=== PATIENT | male | born 1955 | race Caucasian/White ===

== ENCOUNTER → 2017-10-03 | Outpatient (CLI) | payer OTHER ==
[2017-10-03 12:25] LABS: PROSTATIC SPECIFIC AG MONITOR 0.73 NG/ML (< 4.0)
== END ==
LOC: M WUC 09:50
DX: Z12.5 Encounter for screening for malignant neoplasm of prostate (principal)
CPT/HCPCS: 84153

== ENCOUNTER → 2017-10-10 | Outpatient (REF) | payer OTHER ==
[2017-10-10 14:39] LABS: APPEARANCE, URINE HAZY (CLEAR); BACTERIA, URINE AUTO NEGATIVE (NEGATIVE); BILIRUBIN, URINE AUTO NEGATIVE (NEGATIVE); BLOOD, URINE BLOOD NEGATIVE (NEGATIVE); COLOR, URINE AMBER (YELLOW); GLUCOSE, URINE (UA) AUTO NEGATIVE (NEGATIVE); KETONE, URINE AUTO NEGATIVE (NEGATIVE); LEUKOCYTE ESTERASE, URINE AUTO NEGATIVE (NEGATIVE); MUCUS, URINE SMALL (NEGATIVE); NITRITE, URINE AUTO NEGATIVE (NEGATIVE); PROTEIN, URINE AUTO NEGATIVE (NEGATIVE); RBC, URINE AUTO 2 /HPF (0-3); SPECIFIC GRAVITY URINE AUTO 1.025 (1.002-1.035); SQUAMOUS EPITHELIAL CELL UR AU 0 /HPF (0-6); WBC, URINE AUTO 1 /HPF (0-3)
== END ==
LOC: M SMT 13:11
DX: N40.1 Benign prostatic hyperplasia with lower urinary tract symptoms (principal)
CPT/HCPCS: 81001

== ENCOUNTER → 2017-11-29 | Outpatient (CLI) | payer OTHER ==
[2017-11-29 13:12] LABS: ALBUMIN 3.9 GM/DL (3.2-5.2); ANION GAP 9 MEQ/L (8-16); BLOOD UREA NITROGEN 19 MG/DL (7-18); CALCIUM LEVEL 9.1 MG/DL (8.8-10.2); CARBON DIOXIDE LEVEL 27 MEQ/L (21-32); CHLORIDE LEVEL 106 MEQ/L (98-107); CREATININE FOR GFR 0.88 MG/DL (0.70-1.30); GLOMERULAR FILTRATION RATE > 60.0 (>49); GLUCOSE, FASTING 149 MG/DL (70-100); PHOSPHORUS LEVEL 2.3 MG/DL (2.5-4.9); POTASSIUM SERUM 4.1 MEQ/L (3.5-5.1); SODIUM LEVEL 142 MEQ/L (136-145)
== END ==
LOC: M WUC 09:57
DX: I11.9 Hypertensive heart disease without heart failure (principal)
CPT/HCPCS: 80069

== ENCOUNTER → 2018-01-03 | Outpatient (REF) | payer OTHER ==
[2018-01-03 19:06] LABS: DIGOXIN LEVEL 0.8 NG/ML (0.5-2.0)
== END ==
LOC: M LAB REF 17:47
DX: I48.2 Chronic atrial fibrillation (principal)

== ENCOUNTER 2018-05-22 07:52 | Day surgery (SDC) | payer OTHER ==
[2018-05-22] MEDS ORDERED: PROPOFOL 200 MG/20 ML VIAL As Ordered ×2 (08:26)
[2018-05-22] MEDS ORDERED: LIDOCAINE 2% INJ 100 MG/5 ML SDV (FOR ANES.) As Ordered (08:26)
[2018-05-22] MEDS: NS 1,000 ML IV (08:37)
== END 2018-05-22 11:06 | disposition home or self-care (01) ==
LOC: M OPP 07:52
DX: Z12.11 Encounter for screening for malignant neoplasm of colon (principal); Z80.0 Family history of malignant neoplasm of digestive organs; K62.1 Rectal polyp; I48.91 Unspecified atrial fibrillation; E78.5 Hyperlipidemia, unspecified; E11.9 Type 2 diabetes mellitus without complications; M10.9 Gout, unspecified; M19.90 Unspecified osteoarthritis, unspecified site; F41.0 Panic disorder [episodic paroxysmal anxiety]; F32.9 Major depressive disorder, single episode, unspecified; G43.909 Migraine, unspecified, not intractable, without status migrainosus; G47.30 Sleep apnea, unspecified; E66.9 Obesity, unspecified; Z87.891 Personal history of nicotine dependence; Z79.82 Long term (current) use of aspirin; Z79.899 Other long term (current) drug therapy; Z79.84 Long term (current) use of oral hypoglycemic drugs; Z79.01 Long term (current) use of anticoagulants
CPT/HCPCS: 45378

== ENCOUNTER 2018-08-24 10:17 | Emergency (ER) | payer MEDICARE, OTHER ==
[~2018-08-24] VITALS: Ht 185.4 cm; Wt 120.5 kg
[~2018-08-24 10:17] MED LIST: ASPI81TA85 PO; ATOR40TA75 PO; CHLO25TA PO; DIGO0.12 PO; DOCU10CA PO; ELIQ5TAB PO; ELIQUIS PO; FLOM0.4C39 PO; LISI-538 PO; LISI2.5T5 PO; METF500T13 PO; MILK120011 PO; MOBI15TA PO; MULTCAP PO; NEUR300C PO; PAXI25TA13 PO; PAXI37.56 PO; PERC5TAB12 PO; POTA10TA67 PO; ROBA750T4 PO; VERE1CAP PO; ZOCO10TA PO
--- NOTE | 2018-08-24 10:50 | REP ---
CT Head without contrast HISTORY: Fall COMPARISON: None There is no intraparenchymal hemorrhage, acute infarct, mass or midline shift. The ventricular system is normal in appearance. A small retro cerebellar arachnoid cyst is present. There is no extra cerebral collection. There is no fracture. The visualized sinuses are clear. IMPRESSION: There is no intracranial lesion. Electronically Signed by aDmian Marquez MD 08/24/2018 10:42 A
--- NOTE | 2018-08-24 10:56 | REP ---
CT cervical spine without contrast HISTORY: Fall COMPARISON: None The patient is status post C5-C7 anterior spinal fusion. A fixation plate and bone graft material are present. There is no acute fracture or subluxation. A disc bulge is present at the C2-3 level. Disc bulges with associated osteophyte formation are present at the C3-4 and C4-5 levels. Posterior osteophytes are present at the C5-6 and C6-7 levels. There is minimal to mild narrowing of the spinal canal. Uncinate process and/or facet hypertrophy are present at the C2-3 through C7-T1 levels. These findings produce minimal to moderate narrowing of the neural foramina. The C3-4 and C4-5 intervertebral discs are decreased in height consistent with disc degeneration IMPRESSION: 1. There is no acute fracture or subluxation. 2. There is cervical spondylosis at the C2-3 through C7-T1 levels. Electronically Signed by Damian Marquez MD 08/24/2018 10:47 A
[2018-08-24] MEDS ORDERED: ADACEL/BOOSTRIX VACCINE (DIPHTH/PERTUSS/ACELL/TETANUS)0.5ML SYR (90715) IM ONE (11:00)
[2018-08-24] MEDS ORDERED: LIDOCAINE W/EPINEPHRINE 1% 20ML VIAL As Ordered ONE (12:14)
[2018-08-24 13:05] VITALS: BP 156/56
[2018-08-24] MEDS ORDERED: LIDOCAINE W/EPINEPHRINE 1% 20ML VIAL SC ONE (14:00)
== END 2018-08-24 13:14 | disposition home or self-care (01) ==
LOC: M ED 10:17
DX: S01.01XA Laceration without foreign body of scalp, initial encounter (principal); W00.9XXA Unspecified fall due to ice and snow, initial encounter; Y92.009 Unspecified place in unspecified non-institutional (private) residence as the place of occurrence of the external cause; Y93.89 Activity, other specified; I10 Essential (primary) hypertension; I48.91 Unspecified atrial fibrillation; G47.33 Obstructive sleep apnea (adult) (pediatric)

== ENCOUNTER → 2019-03-13 | Outpatient (REF) | payer MEDICARE, OTHER ==
[~2019-03-13] MED LIST changes: +CHLO125TA PO; -CHLO25TA PO; +LISI-1046 PO; -LISI2.5T5 PO
== END ==
LOC: M LAB REF 12:25
PROVIDERS: ATTEND Internal Medicine
DX: Z80.0 Family history of malignant neoplasm of digestive organs (principal)

== ENCOUNTER → 2019-05-27 | Outpatient (REF) | payer MEDICARE, OTHER ==
[2019-05-27 13:34] LABS: APPEARANCE, URINE CLEAR (CLEAR); BACTERIA, URINE AUTO NEGATIVE (NEGATIVE); BILIRUBIN, URINE AUTO NEGATIVE (NEGATIVE); BLOOD, URINE BLOOD NEGATIVE (NEGATIVE); COLOR, URINE YELLOW (YELLOW); GLUCOSE, URINE (UA) AUTO NEGATIVE (NEGATIVE); KETONE, URINE AUTO TRACE mg/dL (NEGATIVE); LEUKOCYTE ESTERASE, URINE AUTO NEGATIVE (NEGATIVE); MUCUS, URINE SMALL (NEGATIVE); NITRITE, URINE AUTO NEGATIVE (NEGATIVE); PROTEIN, URINE AUTO NEGATIVE (NEGATIVE); RBC, URINE AUTO 3 /HPF (0-3); SPECIFIC GRAVITY URINE AUTO 1.027 (1.002-1.035); SQUAMOUS EPITHELIAL CELL UR AU 0 /HPF (0-6); WBC, URINE AUTO 1 /HPF (0-3)
== END ==
LOC: M SMT 13:01
PROVIDERS: ATTEND Nurse Practitioner Women's Health
DX: R31.29 Other microscopic hematuria (principal)
CPT/HCPCS: 81001; 87086; G0463

== ENCOUNTER → 2020-02-11 | Outpatient (CLI) | payer MEDICARE, OTHER ==
[~2020-02-11] MED LIST changes: -ASPI81TA85 PO; +ASPI81TA86 PO; +DIGO0.123 PO; -LISI-1046 PO; +LISI2.5T2 PO
[2020-02-11 13:57] LABS: HEMATOCRIT 45.1 % (42.0-52.0); HEMOGLOBIN 14.5 g/dl (13.5-17.5); MEAN CORPUSCULAR HEMOGLOBIN 29.2 pg (27.0-33.0); MEAN CORPUSCULAR HGB CONC 32.2 g/dl (32.0-36.5); MEAN CORPUSCULAR VOLUME 90.9 fl (80.0-96.0); PLATELET COUNT, AUTOMATED 309 10^3/uL (150-450); RED BLOOD COUNT 4.96 10^6/uL (4.30-6.10); WHITE BLOOD COUNT 8.3 10^3/uL (4.0-10.0)
[2020-02-11 14:13] LABS: BLOOD UREA NITROGEN 18 MG/DL (7-18); CALCIUM LEVEL 8.8 MG/DL (8.8-10.2); CARBON DIOXIDE LEVEL 27 MEQ/L (21-32); CHLORIDE LEVEL 105 MEQ/L (98-107); CREATININE FOR GFR 1.14 MG/DL (0.70-1.30); FREE T4 1.15 NG/DL (0.76-1.46); GLOMERULAR FILTRATION RATE > 60.0 (>49); GLUCOSE, FASTING 130 MG/DL (70-100); POTASSIUM SERUM 4.7 MEQ/L (3.5-5.1); SODIUM LEVEL 139 MEQ/L (136-145)
== END ==
LOC: M WUC 09:41
PROVIDERS: ATTEND Physician Assistant
DX: I48.21 Permanent atrial fibrillation (principal); Z79.82 Long term (current) use of aspirin; Z79.899 Other long term (current) drug therapy; Z79.84 Long term (current) use of oral hypoglycemic drugs

== ENCOUNTER → 2020-03-20 | Outpatient (REF) | payer MEDICARE, OTHER | LOC: M LAB REF 16:00 | PROVIDERS: ATTEND Internal Medicine | DX: R10.32 Left lower quadrant pain (principal) ==

== ENCOUNTER → 2020-03-20 | Outpatient (CLI) | payer MEDICARE, OTHER ==
--- NOTE | 2020-03-20 12:03 | REPVR ---
PROCEDURE INFORMATION: Exam: CT Abdomen And Pelvis Without Contrast Exam date and time: 03/20/2020 11:27 AM Age: 64 years old Clinical indication: Abdominal pain; Localized; Left lower quadrant (llq); Additional info: Llq pain eval for diverticulitis and obstruction TECHNIQUE: Imaging protocol: Computed tomography of the abdomen and pelvis without contrast. Radiation optimization: All CT scans at this facility use at least one of these dose optimization techniques: automated exposure control; mA and/or kV adjustment per patient size (includes targeted exams where dose is matched to clinical indication); or iterative reconstruction. COMPARISON: No relevant prior studies available. FINDINGS: Detailed evaluation of the abdominal and pelvic viscera is somewhat limited in the absence of intravenous contrast. Lungs: Interstitial prominence. Liver: Fatty infiltration of the liver without focal mass. Gallbladder and bile ducts: Gallbladder dilatation. No cholelithiasis or biliary ductal dilatation. Pancreas: No pancreatic mass or ductal dilatation. Spleen: No splenomegaly. Adrenals: Unremarkable adrenals. Kidneys and ureters: Bilateral renal cysts, including a 3.9 cm left renal cyst. No hydronephrosis or urolithiasis. Stomach and bowel: Questionable wall thickening in the nondistended stomach. No significant small bowel dilatation. Prominent stool, in a pattern of constipation. Diverticula, without pericolonic inflammation. Appendix: No acute appendicitis. Intraperitoneal space: No free fluid. Vasculature: Normal caliber of the abdominal aorta. Lymph nodes: Subcentimeter lymph nodes. Bladder: Normal bladder morphology. Reproductive: Calcifications in the mildly enlarged prostate. Bones/joints: Degenerative change and disc bulging. Grade 1 anterolisthesis of L4 on L5. Soft tissues: Calcification at the gluteal muscle attachment sites. Small fat containing inguinal hernia. IMPRESSION: 1. No acute inflammatory process in the abdomen or pelvis. 2. Additional findings as described above. Electronically signed by: Nestor Plaza On 03/20/2020 12:03:40 PM
== END ==
LOC: M RAD 11:13
PROVIDERS: ATTEND Internal Medicine
DX: R10.30 Lower abdominal pain, unspecified (principal); M51.26 Other intervertebral disc displacement, lumbar region

== ENCOUNTER → 2020-08-04 | Outpatient (REF) | payer MEDICARE, OTHER | LOC: M LAB REF 16:38 | PROVIDERS: ATTEND Internal Medicine | DX: I48.20 Chronic atrial fibrillation, unspecified (principal) ==

== ENCOUNTER → 2020-09-04 | Outpatient (REF) | payer MEDICARE, OTHER ==
[~2020-09-04] MED LIST changes: -LISI-538 PO; +LISI20TA33 PO
== END ==
LOC: M LAB REF 11:59
PROVIDERS: ATTEND Internal Medicine
DX: I48.20 Chronic atrial fibrillation, unspecified (principal)

== ENCOUNTER → 2020-09-16 | Outpatient (CLI) | payer MEDICARE, OTHER | LOC: M WUC 13:59 | PROVIDERS: ATTEND Nurse Practitioner Women's Health | DX: Z12.5 Encounter for screening for malignant neoplasm of prostate (principal) | CPT/HCPCS: 36415; G0103 ==

== ENCOUNTER → 2021-02-09 | Outpatient (REF) | payer MEDICARE, OTHER | LOC: M LAB REF 16:30 | PROVIDERS: ATTEND Internal Medicine | DX: Z79.899 Other long term (current) drug therapy (principal); W57.XXXA Bitten or stung by nonvenomous insect and other nonvenomous arthropods, initial encounter ==

== ENCOUNTER → 2021-05-11 | Outpatient (REF) | payer MEDICARE, OTHER ==
[~2021-05-11] MED LIST changes: -LISI2.5T2 PO; +LISI2.5T9 PO
[2021-05-11 17:13] LABS: DIGOXIN LEVEL 1.6 NG/ML (0.5-2.0)
[2021-05-11 18:21] LABS: H PYLORI QUALITATIVE IgG NEGATIVE (NEGATIVE)
== END ==
LOC: M LAB REF 16:08
PROVIDERS: ATTEND Physician Assistant Medical
DX: I48.20 Chronic atrial fibrillation, unspecified (principal); K21.9 Gastro-esophageal reflux disease without esophagitis

== ENCOUNTER → 2021-09-30 | Outpatient (CLI) | payer MEDICARE, OTHER ==
[~2021-09-30] MED LIST changes: +PARO25TA12 PO; +PARO37.510 PO; -PAXI25TA13 PO; -PAXI37.56 PO
== END ==
LOC: M RAD 08:46
PROVIDERS: ATTEND Internal Medicine
DX: M54.2 Cervicalgia (principal)

== ENCOUNTER → 2022-06-07 | Outpatient (CLI) | payer MEDICARE, OTHER ==
[~2022-06-07] MED LIST changes: +SIMV-252 PO; -ZOCO10TA PO
== END ==
LOC: M RAD 11:32
PROVIDERS: ATTEND Physician Assistant
DX: I65.23 Occlusion and stenosis of bilateral carotid arteries (principal)

== ENCOUNTER 2022-08-15 08:50 | Inpatient (IN) | payer MEDICARE, OTHER ==
[~2022-08-15] VITALS: Ht 185.4 cm; Wt 109.1 kg
[2022-08-15] MEDS ORDERED: ONDANSETRON 4MG 2ML VIAL IV ONE (09:00)
[2022-08-15] MEDS: MORPHINE 2 MG/ML 1ML VIAL IV PRN ×2 (09:54→11:47)
[2022-08-15] MEDS: NS 1,000 ML IV SCH ×2 (09:54→18:33)
[2022-08-15 09:55] LABS: BASO # 0.1 10^3/uL (0.0-0.2); BASO % 0.8 % (0.0-1.0); EOS # 0.5 10^3/uL (0.0-0.5); EOS % 5.1 % (0.0-3.0); HEMATOCRIT 42.9 % (42.0-52.0); HEMOGLOBIN 14.5 g/dl (13.5-17.5); LYMPH # 2.2 10^3/uL (1.5-5.0); LYMPH % 24.2 % (24.0-44.0); MEAN CORPUSCULAR HEMOGLOBIN 29.2 pg (27.0-33.0); MEAN CORPUSCULAR HGB CONC 33.8 g/dl (32.0-36.5); MEAN CORPUSCULAR VOLUME 86.5 fl (80.0-96.0); MONO # 0.4 10^3/uL (0.0-0.8); MONO % 4.5 % (2.0-8.0); NEUTROPHILS # 5.9 10^3/uL (1.5-8.5); NEUTROPHILS % 65.1 % (36.0-66.0); PLATELET COUNT, AUTOMATED 194 10^3/uL (150-450); RED BLOOD COUNT 4.96 10^6/uL (4.30-6.10); WHITE BLOOD COUNT 9.1 10^3/uL (4.0-10.0)
[2022-08-15 10:07] LABS: INR 0.96
[2022-08-15] MEDS ORDERED: MORPHINE 4 MG/ML 1ML VIAL As Ordered ONE (10:07)
[2022-08-15 10:08] LABS: PARTIAL THROMBOPLASTIN TIME 24.6 SECONDS (24.8-34.2)
[2022-08-15 10:18] LABS: ALBUMIN 3.8 G/DL (3.2-5.2); ALKALINE PHOSPHATASE 60 U/L (46-116); ALT/SGPT 41 U/L (7.0-40); AST/SGOT 26 U/L (<34); BILIRUBIN,DIRECT 0.3 MG/DL (<0.4); BILIRUBIN,TOTAL 0.9 MG/DL (0.3-1.2); BLOOD UREA NITROGEN 17 MG/DL (9-23); CALCIUM LEVEL 8.8 MG/DL (8.3-10.6); CARBON DIOXIDE LEVEL 24 MMOL/L (20-31); CHLORIDE LEVEL 104 MMOL/L (98-107); CREATININE FOR GFR 0.77 MG/DL (0.70-1.30); GLOMERULAR FILTRATION RATE > 60.0 (>49); GLUCOSE, FASTING 155 MG/DL (74-106); POTASSIUM SERUM 4.5 MMOL/L (3.5-5.1); SODIUM LEVEL 137 MMOL/L (136-145); TOTAL PROTEIN 6.8 G/DL (5.7-8.2)
[2022-08-15 10:32] LABS: RSV AMPLIFICATION NEGATIVE (NEGATIVE)
[2022-08-15] MEDS ORDERED: NS 500 ML IV ONE (10:38)
[2022-08-15] MEDS ORDERED: MORPHINE 4 MG/ML 1ML VIAL IV ONE (10:38)
[2022-08-15] MEDS ORDERED: ECOT81TA5 PO (11:39)
[2022-08-15] MEDS ORDERED: ASPI-569 PO (11:41)
[2022-08-15] MEDS ORDERED: ATOR80TA59 PO (11:41)
[2022-08-15] MEDS ORDERED: DIGO0.253 PO (11:43)
[2022-08-15] MEDS ORDERED: VERA200C2 PO (11:48)
[2022-08-15] MEDS ORDERED: VITMTA PO (11:48)
[2022-08-15] MEDS ORDERED: GLUCAGON INJ 1MG VIAL SC PRN (11:50)
[2022-08-15] MEDS ORDERED: DEXTROSE 50% 50ML SYRINGE IV PRN (11:50)
[2022-08-15] MEDS ORDERED: GLUCOSE 4GM CHEW TABLET PO PRN (11:50)
[2022-08-15] MEDS ORDERED: MORPHINE 4 MG/ML 1ML VIAL IV PRN (11:50)
[2022-08-15] MEDS ORDERED: LANTINJ4 SC (11:54)
[2022-08-15] MEDS ORDERED: LISI2.5T9 PO (11:54)
[2022-08-15] MEDS ORDERED: JARD1TAB PO (11:54)
[2022-08-15] MEDS ORDERED: DULO30CA9 PO (11:54)
[2022-08-15] MEDS: INSULIN LISPRO (NovoLOG) PER UNIT SC SCH ×2 (12:00→17:30)
[2022-08-15] MEDS ORDERED: HOME MED LIST COMPLETE! XX SCH (12:05)
[2022-08-15] MEDS: KETOROLAC 30 MG/ML 1ML VIAL IV SCH ×2 (13:00→21:04)
[2022-08-15 13:05] LABS: BASO # 0.1 10^3/uL (0.0-0.2); BASO % 0.5 % (0.0-1.0); EOS # 0.1 10^3/uL (0.0-0.5); EOS % 0.6 % (0.0-3.0); HEMATOCRIT 40.3 % (42.0-52.0); HEMOGLOBIN 13.7 g/dl (13.5-17.5); LYMPH # 1.4 10^3/uL (1.5-5.0); MEAN CORPUSCULAR HEMOGLOBIN 29.5 pg (27.0-33.0); MEAN CORPUSCULAR VOLUME 86.9 fl (80.0-96.0); MONO # 0.8 10^3/uL (0.0-0.8); MONO % 5.3 % (2.0-8.0); NEUTROPHILS # 12.8 10^3/uL (1.5-8.5); NEUTROPHILS % 84.1 % (36.0-66.0); PLATELET COUNT, AUTOMATED 192 10^3/uL (150-450); RED BLOOD COUNT 4.64 10^6/uL (4.30-6.10); WHITE BLOOD COUNT 15.2 10^3/uL (4.0-10.0)
[2022-08-15] MEDS: PERCOCET 5MG/325MG TAB PO PRN ×2 (17:39→23:13)
[2022-08-15 20:50] VITALS: BP 131/68
[2022-08-15] MEDS ORDERED: INSULIN LISPRO (NovoLOG) PER UNIT SC SCH (21:00)
[2022-08-15] MEDS: TAMSULOSIN 0.4 MG CAP PO SCH (22:09)
[2022-08-15] MEDS: VERAPAMIL 180MG EXTENDED RELEASE TABLET PO SCH (22:20)
[2022-08-16] VITALS (9 sets, daily range): BP systolic 123–148; BP diastolic 61–84
[2022-08-16] MEDS: KETOROLAC 30 MG/ML 1ML VIAL IV SCH ×4 (01:38→20:36)
[2022-08-16] MEDS ORDERED: INSULIN LISPRO (NovoLOG) PER UNIT SC SCH ×2 (03:00→21:00)
[2022-08-16] MEDS: INSULIN LISPRO (NovoLOG) PER UNIT SC SCH ×4 (06:00→18:00)
[2022-08-16 06:18] LABS: HEMATOCRIT 35.7 % (42.0-52.0); HEMOGLOBIN 11.8 g/dl (13.5-17.5); MEAN CORPUSCULAR HEMOGLOBIN 29.6 pg (27.0-33.0); MEAN CORPUSCULAR HGB CONC 33.1 g/dl (32.0-36.5); MEAN CORPUSCULAR VOLUME 89.5 fl (80.0-96.0); PLATELET COUNT, AUTOMATED 183 10^3/uL (150-450); RED BLOOD COUNT 3.99 10^6/uL (4.30-6.10); WHITE BLOOD COUNT 10.3 10^3/uL (4.0-10.0)
[2022-08-16 06:44] LABS: ALBUMIN 3.2 G/DL (3.2-5.2); ALKALINE PHOSPHATASE 53 U/L (46-116); ALT/SGPT 31 U/L (7.0-40); AST/SGOT 22 U/L (<34); BILIRUBIN,TOTAL 0.7 MG/DL (0.3-1.2); BLOOD UREA NITROGEN 27 MG/DL (9-23); CALCIUM LEVEL 8.4 MG/DL (8.3-10.6); CARBON DIOXIDE LEVEL 26 MMOL/L (20-31); CHLORIDE LEVEL 106 MMOL/L (98-107); CREATININE FOR GFR 0.92 MG/DL (0.70-1.30); GLOMERULAR FILTRATION RATE > 60.0 (>49); GLUCOSE, FASTING 122 MG/DL (74-106); POTASSIUM SERUM 4.4 MMOL/L (3.5-5.1); SODIUM LEVEL 139 MMOL/L (136-145); TOTAL PROTEIN 5.6 G/DL (5.7-8.2)
[2022-08-16] MEDS: NS 1,000 ML IV SCH (06:47)
[2022-08-16] MEDS: PERCOCET 5MG/325MG TAB PO PRN ×2 (08:55→22:39)
[2022-08-16] MEDS: DIGOXIN 0.25 MG TAB PO SCH (08:56)
[2022-08-16] MEDS: ATORVASTATIN 20 MG TAB PO SCH (08:59)
[2022-08-16] MEDS ORDERED: TRANEXAMIC ACID 100 MG/ML 10ML VIAL As Ordered ONE ×2 (14:58→18:18)
[2022-08-16] MEDS ORDERED: BUPIVACAINE LIPOSOME/PF 1.3% 20ML VIAL (13.3MG/ML)(EXPAREL) As Ordered ONE (14:59)
[2022-08-16] MEDS ORDERED: LIDOCAINE W/EPINEPHRINE 1% 20ML VIAL As Ordered ONE (14:59)
[2022-08-16] MEDS ORDERED: BUPIVACAINE HCL 0.5% 30ML VIAL As Ordered ONE (14:59)
[2022-08-16] MEDS ORDERED: fentaNYL 100 MCG/2 ML INJECTION As Ordered ONE ×2 (15:34→17:07)
[2022-08-16] MEDS ORDERED: propofoL 200 MG/20 ML VIAL As Ordered ONE (15:34)
[2022-08-16] MEDS ORDERED: MIDAZOLAM INJ 2MG/2ML VIAL As Ordered ONE (15:34)
[2022-08-16] MEDS ORDERED: LIDOCAINE 2% 100MG/5ML SDV (FOR ANES.) As Ordered ONE (15:34)
[2022-08-16] MEDS ORDERED: ROCURONIUM BROMIDE 50MG/5ML VIAL As Ordered ONE (15:34)
[2022-08-16] MEDS ORDERED: METOCLOPRAMIDE INJ 10MG/2ML VIAL As Ordered ONE (15:58)
[2022-08-16] MEDS ORDERED: ceFAZolin 2 GM/D5W 50 ML IV BAG As Ordered ONE (16:04)
[2022-08-16] MEDS ORDERED: ACETAMINOPHEN 1000MG 100ML IV BAG As Ordered ONE (16:22)
[2022-08-16] MEDS ORDERED: ONDANSETRON 4MG 2ML VIAL As Ordered ONE (16:23)
[2022-08-16] MEDS ORDERED: SUGAMMADEX SODIUM 500 MG/5 ML VIAL (BRIDION) As Ordered ONE (16:33)
[2022-08-16] MEDS ORDERED: VANCOMYCIN 1000MG/20ML VIAL As Ordered ONE (17:42)
[2022-08-16] MEDS ORDERED: LR 1,000 ML IV SCH (18:30)
[2022-08-16] MEDS ORDERED: ONDANSETRON 4MG 2ML VIAL IV PRN (18:30)
[2022-08-16] MEDS ORDERED: METOCLOPRAMIDE INJ 10MG/2ML VIAL IV PRN (18:30)
[2022-08-16] MEDS ORDERED: fentaNYL 100 MCG/2 ML INJECTION IV PRN (18:30)
[2022-08-16] MEDS ORDERED: oxyCODONE 5MG TAB PO PRN (18:30)
[2022-08-16] MEDS ORDERED: MORPHINE 2 MG/ML 1ML VIAL IV PRN (18:30)
[2022-08-16 19:06] LABS: HEMATOCRIT 30.6 % (42.0-52.0); HEMOGLOBIN 10.1 g/dl (13.5-17.5)
[2022-08-16] MEDS ORDERED: LEVEMIR (INSULIN DETEMIR) 1 UNITS/0.01ML SC SCH (21:00)
[2022-08-16] MEDS ORDERED: DULoxetine 30MG CAPSULE (CYMBALTA) PO SCH (21:00)
[2022-08-16] MEDS: VERAPAMIL 180MG EXTENDED RELEASE TABLET PO SCH (21:58)
[2022-08-16] MEDS: TAMSULOSIN 0.4 MG CAP PO SCH (21:58)
[2022-08-17] VITALS (7 sets, daily range): BP systolic 110–136; BP diastolic 50–74
[2022-08-17] MEDS: ceFAZolin SOD 2 GM in IV 1 EA IV SCH ×2 (00:20→08:07)
[2022-08-17] MEDS: KETOROLAC 30 MG/ML 1ML VIAL IV SCH ×3 (01:07→12:01)
[2022-08-17 06:13] LABS: HEMATOCRIT 28.6 % (42.0-52.0); HEMOGLOBIN 9.4 g/dl (13.5-17.5); MEAN CORPUSCULAR HEMOGLOBIN 29.9 pg (27.0-33.0); MEAN CORPUSCULAR HGB CONC 32.9 g/dl (32.0-36.5); MEAN CORPUSCULAR VOLUME 91.1 fl (80.0-96.0); PLATELET COUNT, AUTOMATED 149 10^3/uL (150-450); RED BLOOD COUNT 3.14 10^6/uL (4.30-6.10); WHITE BLOOD COUNT 9.4 10^3/uL (4.0-10.0)
[2022-08-17 06:20] LABS: INR 1.05; PROTHROMBIN TIME 13.9 SECONDS (12.5-14.5)
[2022-08-17 06:32] LABS: ALBUMIN 2.9 G/DL (3.2-5.2); ALKALINE PHOSPHATASE 47 U/L (46-116); ALT/SGPT 30 U/L (7.0-40); AST/SGOT 35 U/L (<34); BILIRUBIN,TOTAL 0.8 MG/DL (0.3-1.2); BLOOD UREA NITROGEN 29 MG/DL (9-23); CALCIUM LEVEL 8.1 MG/DL (8.3-10.6); CARBON DIOXIDE LEVEL 27 MMOL/L (20-31); CHLORIDE LEVEL 107 MMOL/L (98-107); CREATININE FOR GFR 0.89 MG/DL (0.70-1.30); GLOMERULAR FILTRATION RATE > 60.0 (>49); GLUCOSE, FASTING 109 MG/DL (74-106); PHOSPHORUS LEVEL 3.8 MG/DL (2.4-5.1); POTASSIUM SERUM 4.2 MMOL/L (3.5-5.1); SODIUM LEVEL 141 MMOL/L (136-145); TOTAL PROTEIN 4.9 G/DL (5.7-8.2)
[2022-08-17] MEDS: ATORVASTATIN 20 MG TAB PO SCH (08:05)
[2022-08-17] MEDS: DIGOXIN 0.25 MG TAB PO SCH (08:07)
[2022-08-17] MEDS: INSULIN LISPRO (NovoLOG) PER UNIT SC SCH ×3 (08:08→12:01)
[2022-08-17] MEDS: PERCOCET 5MG/325MG TAB PO PRN (08:50)
[2022-08-17] MEDS ORDERED: MORP4INJ2 IV (10:15)
[2022-08-17] MEDS ORDERED: CEFA1SOL IV (10:15)
[2022-08-17] MEDS ORDERED: PERCOCET PO (10:15)
[2022-08-17] MEDS ORDERED: Ketorolac Tromethamine IV (10:15)
== END 2022-08-17 15:36 | DRG 481 ==
LOC: M ED 08:50 → EDBD 08:50 → EDSEX 08:50 → M ED INP 11:50 → ENRESERV 19:13 → M MSPAV 20:51
PROVIDERS: ADMIT Internal Medicine Nephrology; ATTEND Student in an Organized Health Care Education/Training Program
PROC: BQ11ZZZ Fluoroscopy of Left Hip (ICD-10-PCS; 2022-08-16)
PROC: 0QS706Z Reposition Left Upper Femur with Intramedullary Internal Fixation Device, Open Approach (ICD-10-PCS; principal; 2022-08-16 07:30)
PROC: 30233N1 Transfusion of Nonautologous Red Blood Cells into Peripheral Vein, Percutaneous Approach (ICD-10-PCS; 2022-08-17)
DX: S72.002A Fracture of unspecified part of neck of left femur, initial encounter for closed fracture (principal); D62 Acute posthemorrhagic anemia; I48.91 Unspecified atrial fibrillation; I10 Essential (primary) hypertension; E78.5 Hyperlipidemia, unspecified; G47.33 Obstructive sleep apnea (adult) (pediatric); F41.9 Anxiety disorder, unspecified; N40.1 Benign prostatic hyperplasia with lower urinary tract symptoms; G43.909 Migraine, unspecified, not intractable, without status migrainosus; E11.9 Type 2 diabetes mellitus without complications; K76.0 Fatty (change of) liver, not elsewhere classified; M47.812 Spondylosis without myelopathy or radiculopathy, cervical region; F32.A Depression, unspecified; M19.90 Unspecified osteoarthritis, unspecified site; W00.0XXA Fall on same level due to ice and snow, initial encounter; Y92.9 Unspecified place or not applicable; Z85.828 Personal history of other malignant neoplasm of skin; Z87.891 Personal history of nicotine dependence; Z20.822 Contact with and (suspected) exposure to COVID-19; Z79.01 Long term (current) use of anticoagulants; Z79.82 Long term (current) use of aspirin; Z79.4 Long term (current) use of insulin; Z79.899 Other long term (current) drug therapy

== ENCOUNTER 2022-08-17 11:17 | Inpatient (IN) | payer MEDICARE, OTHER ==
[~2022-08-17] VITALS: Ht 185.4 cm; Wt 104.0 kg
[~2022-08-17 11:17] MED LIST changes: +ASPI-569 PO; +ATOR80TA59 PO; +CEFA1SOL IV; +DIGO0.253 PO; +DULO30CA9 PO; +ECOT81TA5 PO; +JARD1TAB PO; +Ketorolac Tromethamine IV; +LANTINJ4 SC; +MORP4INJ2 IV; +PERCOCET PO; +VERA200C2 PO; +VITMTA PO
[2022-08-17] MEDS ORDERED: BISACODYL 10MG SUPP PR PRN (12:35)
[2022-08-17] MEDS ORDERED: DEXTROSE 50% 50ML SYRINGE IV PRN (12:35)
[2022-08-17] MEDS ORDERED: GLUCAGON INJ 1MG VIAL SC PRN (12:35)
[2022-08-17] MEDS ORDERED: ONDANSETRON 4MG TAB PO PRN (12:35)
[2022-08-17] MEDS ORDERED: GLUCOSE 4GM CHEW TABLET PO PRN (12:35)
[2022-08-17] MEDS ORDERED: INSULIN LISPRO (NovoLOG) PER UNIT SC SCH (17:30)
[2022-08-17 20:00] VITALS: BP 132/62
[2022-08-17] MEDS: APIXABAN 5 MG TAB (ELIQUIS) PO SCH (20:46)
[2022-08-17] MEDS: ACETAMINOPHEN 500 MG TAB PO SCH (20:47)
[2022-08-17] MEDS: DULoxetine 30MG CAPSULE (CYMBALTA) PO SCH (20:47)
[2022-08-17] MEDS: SENNA 8.6 MG TAB (SENOKOT) PO SCH (20:47)
[2022-08-17] MEDS: oxyCODONE 5MG TAB PO PRN (20:47)
[2022-08-17] MEDS: LEVEMIR (INSULIN DETEMIR) 1 UNITS/0.01ML SC SCH (20:48)
[2022-08-17] MEDS: INSULIN LISPRO (NovoLOG) PER UNIT SC SCH (20:49)
[2022-08-17] MEDS: ceFAZolin SOD 2 GM in IV 1 EA IV SCH (20:50)
[2022-08-17] MEDS: REMEDY PHYTOPLEX Z-GUARD PASTE 113GM TUBE (FROM STOREROOM PRODUCT) TOP SCH (20:51)
[2022-08-17] MEDS: DOCUSATE SODIUM 100MG CAPSULE PO SCH (20:51)
[2022-08-17] MEDS ORDERED: VERAPAMIL 180MG EXTENDED RELEASE TABLET PO SCH (21:00)
[2022-08-17] MEDS ORDERED: TAMSULOSIN 0.4 MG CAP PO SCH (21:00)
[2022-08-18] MEDS: ceFAZolin SOD 2 GM in IV 1 EA IV SCH (03:33)
[2022-08-18 05:51] LABS: BASO # 0.1 10^3/uL (0.0-0.2); BASO % 0.6 % (0.0-1.0); EOS # 0.5 10^3/uL (0.0-0.5); HEMATOCRIT 27.5 % (42.0-52.0); LYMPH # 2.6 10^3/uL (1.5-5.0); LYMPH % 31.2 % (24.0-44.0); MEAN CORPUSCULAR HEMOGLOBIN 29.3 pg (27.0-33.0); MEAN CORPUSCULAR HGB CONC 32.7 g/dl (32.0-36.5); MEAN CORPUSCULAR VOLUME 89.6 fl (80.0-96.0); MONO # 0.7 10^3/uL (0.0-0.8); MONO % 8.8 % (2.0-8.0); NEUTROPHILS # 4.5 10^3/uL (1.5-8.5); NEUTROPHILS % 53.2 % (36.0-66.0); PLATELET COUNT, AUTOMATED 134 10^3/uL (150-450); RED BLOOD COUNT 3.07 10^6/uL (4.30-6.10); WHITE BLOOD COUNT 8.4 10^3/uL (4.0-10.0)
[2022-08-18 06:14] LABS: ALBUMIN 2.8 G/DL (3.2-5.2); ALKALINE PHOSPHATASE 46 U/L (46-116); ALT/SGPT 24 U/L (7.0-40); AST/SGOT 42 U/L (<34); BILIRUBIN,TOTAL 0.9 MG/DL (0.3-1.2); BLOOD UREA NITROGEN 24 MG/DL (9-23); CALCIUM LEVEL 8.1 MG/DL (8.3-10.6); CARBON DIOXIDE LEVEL 27 MMOL/L (20-31); CHLORIDE LEVEL 107 MMOL/L (98-107); GLOMERULAR FILTRATION RATE > 60.0 (>49); GLUCOSE, FASTING 113 MG/DL (74-106); POTASSIUM SERUM 3.9 MMOL/L (3.5-5.1); SODIUM LEVEL 141 MMOL/L (136-145)
[2022-08-18 06:34] VITALS: BP 130/68
[2022-08-18] MEDS: ATORVASTATIN 20 MG TAB PO SCH (07:14)
[2022-08-18] MEDS: INSULIN LISPRO (NovoLOG) PER UNIT SC SCH ×4 (07:14→20:25)
[2022-08-18] MEDS: PANTOPRAZOLE 40MG TAB (PROTONIX) PO SCH (07:14)
[2022-08-18] MEDS: DOCUSATE SODIUM 100MG CAPSULE PO SCH ×2 (07:15→20:24)
[2022-08-18] MEDS: APIXABAN 5 MG TAB (ELIQUIS) PO SCH ×2 (07:15→20:25)
[2022-08-18] MEDS: ACETAMINOPHEN 500 MG TAB PO SCH ×3 (07:16→20:24)
[2022-08-18] MEDS: REMEDY PHYTOPLEX Z-GUARD PASTE 113GM TUBE (FROM STOREROOM PRODUCT) TOP SCH ×3 (07:16→20:26)
[2022-08-18 08:23] VITALS: BP_SYST 104; BP_SYST 134; BP_SYST 84; BP_DIAS 47; BP_DIAS 51; BP_DIAS 62
[2022-08-18] MEDS ORDERED: DIGOXIN 0.25 MG TAB PO SCH (09:00)
[2022-08-18] MEDS ORDERED: NS 500 ML IV ONE (09:20)
[2022-08-18] MEDS ORDERED: LR 1,000 ML IV ONE (11:25)
[2022-08-18 11:35] VITALS: BP_SYST 120; BP_SYST 124; BP_SYST 132; BP_DIAS 70; BP_DIAS 80
[2022-08-18] MEDS ORDERED: SODIUM CHLORIDE 0.9% 1000ML IV ONE (11:35)
[2022-08-18 11:57] LABS: HEMATOCRIT 28.8 % (42.0-52.0); HEMOGLOBIN 9.6 g/dl (13.5-17.5); MEAN CORPUSCULAR HGB CONC 33.3 g/dl (32.0-36.5); PLATELET COUNT, AUTOMATED 159 10^3/uL (150-450); WHITE BLOOD COUNT 8.4 10^3/uL (4.0-10.0)
[2022-08-18] MEDS: oxyCODONE 5MG TAB PO PRN ×2 (12:25→20:24)
[2022-08-18 14:00] VITALS: BP 145/71
[2022-08-18 20:00] VITALS: BP 134/66
[2022-08-18] MEDS: VERAPAMIL 120MG SR TAB PO SCH (20:24)
[2022-08-18] MEDS: DULoxetine 30MG CAPSULE (CYMBALTA) PO SCH (20:24)
[2022-08-18] MEDS: LEVEMIR (INSULIN DETEMIR) 1 UNITS/0.01ML SC SCH (20:25)
[2022-08-18] MEDS: SENNA 8.6 MG TAB (SENOKOT) PO SCH (20:25)
[2022-08-19 06:00] VITALS: BP 130/72
[2022-08-19 06:30] LABS: BLOOD UREA NITROGEN 19 MG/DL (9-23); CALCIUM LEVEL 8.1 MG/DL (8.3-10.6); CARBON DIOXIDE LEVEL 27 MMOL/L (20-31); CHLORIDE LEVEL 106 MMOL/L (98-107); CREATININE FOR GFR 0.72 MG/DL (0.70-1.30); GLOMERULAR FILTRATION RATE > 60.0 (>49); GLUCOSE, FASTING 105 MG/DL (74-106); POTASSIUM SERUM 3.7 MMOL/L (3.5-5.1); SODIUM LEVEL 141 MMOL/L (136-145)
[2022-08-19] MEDS: oxyCODONE 5MG TAB PO PRN (06:55)
[2022-08-19] MEDS: INSULIN LISPRO (NovoLOG) PER UNIT SC SCH ×4 (08:35→20:31)
[2022-08-19] MEDS: DIGOXIN 0.25 MG TAB PO SCH (08:37)
[2022-08-19] MEDS: APIXABAN 5 MG TAB (ELIQUIS) PO SCH ×2 (08:37→20:30)
[2022-08-19] MEDS: ATORVASTATIN 20 MG TAB PO SCH (08:37)
[2022-08-19] MEDS: PANTOPRAZOLE 40MG TAB (PROTONIX) PO SCH (08:37)
[2022-08-19] MEDS: DOCUSATE SODIUM 100MG CAPSULE PO SCH ×2 (08:37→20:30)
[2022-08-19] MEDS: ACETAMINOPHEN 500 MG TAB PO SCH ×3 (08:38→20:30)
[2022-08-19] MEDS: REMEDY PHYTOPLEX Z-GUARD PASTE 113GM TUBE (FROM STOREROOM PRODUCT) TOP SCH ×3 (08:38→20:31)
[2022-08-19 14:00] VITALS: BP 139/63
[2022-08-19 20:00] VITALS: BP 145/66
[2022-08-19] MEDS: LEVEMIR (INSULIN DETEMIR) 1 UNITS/0.01ML SC SCH (20:29)
[2022-08-19] MEDS: SENNA 8.6 MG TAB (SENOKOT) PO SCH (20:30)
[2022-08-19] MEDS: DULoxetine 30MG CAPSULE (CYMBALTA) PO SCH (20:30)
[2022-08-19] MEDS: VERAPAMIL 120MG SR TAB PO SCH (20:31)
[2022-08-20 06:00] VITALS: BP 140/71
[2022-08-20] MEDS: INSULIN LISPRO (NovoLOG) PER UNIT SC SCH ×4 (08:14→20:35)
[2022-08-20] MEDS: ATORVASTATIN 20 MG TAB PO SCH (08:16)
[2022-08-20] MEDS: ACETAMINOPHEN 500 MG TAB PO SCH ×3 (08:16→20:34)
[2022-08-20] MEDS: DOCUSATE SODIUM 100MG CAPSULE PO SCH ×2 (08:16→20:34)
[2022-08-20] MEDS: APIXABAN 5 MG TAB (ELIQUIS) PO SCH ×2 (08:17→20:34)
[2022-08-20] MEDS: PANTOPRAZOLE 40MG TAB (PROTONIX) PO SCH (08:17)
[2022-08-20] MEDS: DIGOXIN 0.25 MG TAB PO SCH (08:17)
[2022-08-20] MEDS: REMEDY PHYTOPLEX Z-GUARD PASTE 113GM TUBE (FROM STOREROOM PRODUCT) TOP SCH ×3 (08:19→20:35)
[2022-08-20] MEDS: oxyCODONE 5MG TAB PO PRN (09:45)
[2022-08-20 14:10] VITALS: BP 158/74
[2022-08-20 14:35] VITALS: BP 134/63
[2022-08-20 20:24] VITALS: BP 164/72
[2022-08-20] MEDS: VERAPAMIL 120MG SR TAB PO SCH (20:34)
[2022-08-20] MEDS: DULoxetine 30MG CAPSULE (CYMBALTA) PO SCH (20:34)
[2022-08-20] MEDS: LEVEMIR (INSULIN DETEMIR) 1 UNITS/0.01ML SC SCH (20:34)
[2022-08-20] MEDS: SENNA 8.6 MG TAB (SENOKOT) PO SCH (20:34)
[2022-08-21] MEDS: oxyCODONE 5MG TAB PO PRN (06:26)
[2022-08-21 07:14] VITALS: BP 162/78
[2022-08-21] MEDS: DOCUSATE SODIUM 100MG CAPSULE PO SCH ×2 (08:35→20:35)
[2022-08-21] MEDS: INSULIN LISPRO (NovoLOG) PER UNIT SC SCH ×4 (08:35→20:36)
[2022-08-21] MEDS: APIXABAN 5 MG TAB (ELIQUIS) PO SCH ×2 (08:35→20:35)
[2022-08-21] MEDS: DIGOXIN 0.25 MG TAB PO SCH (08:36)
[2022-08-21] MEDS: PANTOPRAZOLE 40MG TAB (PROTONIX) PO SCH (08:37)
[2022-08-21] MEDS: ACETAMINOPHEN 500 MG TAB PO SCH ×3 (08:37→20:35)
[2022-08-21] MEDS: ATORVASTATIN 20 MG TAB PO SCH (08:37)
[2022-08-21] MEDS: REMEDY PHYTOPLEX Z-GUARD PASTE 113GM TUBE (FROM STOREROOM PRODUCT) TOP SCH ×3 (08:38→20:36)
[2022-08-21 14:00] VITALS: BP 118/62
[2022-08-21 20:32] VITALS: BP 142/62
[2022-08-21] MEDS: LEVEMIR (INSULIN DETEMIR) 1 UNITS/0.01ML SC SCH (20:34)
[2022-08-21] MEDS: DULoxetine 30MG CAPSULE (CYMBALTA) PO SCH (20:35)
[2022-08-21] MEDS: VERAPAMIL 120MG SR TAB PO SCH (20:35)
[2022-08-21] MEDS: SENNA 8.6 MG TAB (SENOKOT) PO SCH (20:35)
[2022-08-22 06:06] VITALS: BP 136/78
[2022-08-22] MEDS: oxyCODONE 5MG TAB PO PRN ×2 (06:54→20:27)
[2022-08-22] MEDS: APIXABAN 5 MG TAB (ELIQUIS) PO SCH ×2 (07:40→20:27)
[2022-08-22] MEDS: DIGOXIN 0.25 MG TAB PO SCH (07:40)
[2022-08-22] MEDS: PANTOPRAZOLE 40MG TAB (PROTONIX) PO SCH (07:40)
[2022-08-22] MEDS: INSULIN LISPRO (NovoLOG) PER UNIT SC SCH ×4 (07:41→20:28)
[2022-08-22] MEDS: ATORVASTATIN 20 MG TAB PO SCH (07:41)
[2022-08-22] MEDS: DOCUSATE SODIUM 100MG CAPSULE PO SCH ×2 (07:41→20:27)
[2022-08-22] MEDS: REMEDY PHYTOPLEX Z-GUARD PASTE 113GM TUBE (FROM STOREROOM PRODUCT) TOP SCH ×3 (07:42→19:16)
[2022-08-22] MEDS: ACETAMINOPHEN 500 MG TAB PO SCH ×3 (07:42→20:27)
[2022-08-22 08:38] LABS: BASO # 0.1 10^3/uL (0.0-0.2); BASO % 0.6 % (0.0-1.0); EOS # 0.3 10^3/uL (0.0-0.5); EOS % 3.5 % (0.0-3.0); HEMATOCRIT 31.9 % (42.0-52.0); HEMOGLOBIN 10.1 g/dl (13.5-17.5); LYMPH # 1.3 10^3/uL (1.5-5.0); LYMPH % 14.2 % (24.0-44.0); MEAN CORPUSCULAR HEMOGLOBIN 28.9 pg (27.0-33.0); MEAN CORPUSCULAR HGB CONC 31.7 g/dl (32.0-36.5); MEAN CORPUSCULAR VOLUME 91.1 fl (80.0-96.0); MONO # 0.4 10^3/uL (0.0-0.8); MONO % 4.5 % (2.0-8.0); NEUTROPHILS # 6.8 10^3/uL (1.5-8.5); NEUTROPHILS % 76.7 % (36.0-66.0); PLATELET COUNT, AUTOMATED 302 10^3/uL (150-450); WHITE BLOOD COUNT 8.8 10^3/uL (4.0-10.0)
[2022-08-22 09:29] LABS: BLOOD UREA NITROGEN 18 MG/DL (9-23); CALCIUM LEVEL 8.8 MG/DL (8.3-10.6); CARBON DIOXIDE LEVEL 24 MMOL/L (20-31); CHLORIDE LEVEL 104 MMOL/L (98-107); CREATININE FOR GFR 0.74 MG/DL (0.70-1.30); GLOMERULAR FILTRATION RATE > 60.0 (>49); GLUCOSE, FASTING 203 MG/DL (74-106); POTASSIUM SERUM 4.2 MMOL/L (3.5-5.1); SODIUM LEVEL 138 MMOL/L (136-145)
[2022-08-22 09:54] VITALS: BP 133/68
[2022-08-22] MEDS ORDERED: PILL CUTTER 1 EACH XX PRN (10:10)
[2022-08-22] MEDS ORDERED: VERAPAMIL 40 MG TAB PO ONE (11:00)
[2022-08-22 11:47] VITALS: BP 143/66
[2022-08-22 14:00] VITALS: BP 149/64
[2022-08-22 20:00] VITALS: BP 141/63
[2022-08-22] MEDS: DULoxetine 30MG CAPSULE (CYMBALTA) PO SCH (20:27)
[2022-08-22] MEDS: SENNA 8.6 MG TAB (SENOKOT) PO SCH (20:27)
[2022-08-22] MEDS ORDERED: VERAPAMIL 180MG EXTENDED RELEASE TABLET PO SCH (21:00)
[2022-08-23 06:00] VITALS: BP 139/69
[2022-08-23] MEDS: INSULIN LISPRO (NovoLOG) PER UNIT SC SCH (07:23)
[2022-08-23] MEDS: DIGOXIN 0.25 MG TAB PO SCH (07:24)
[2022-08-23] MEDS: ATORVASTATIN 20 MG TAB PO SCH (07:24)
[2022-08-23] MEDS: APIXABAN 5 MG TAB (ELIQUIS) PO SCH ×2 (07:24→21:20)
[2022-08-23] MEDS: REMEDY PHYTOPLEX Z-GUARD PASTE 113GM TUBE (FROM STOREROOM PRODUCT) TOP SCH ×3 (07:24→19:07)
[2022-08-23] MEDS: ACETAMINOPHEN 500 MG TAB PO SCH ×3 (07:24→21:22)
[2022-08-23] MEDS: PANTOPRAZOLE 40MG TAB (PROTONIX) PO SCH (07:24)
[2022-08-23] MEDS: DOCUSATE SODIUM 100MG CAPSULE PO SCH ×2 (07:24→21:20)
[2022-08-23] MEDS: oxyCODONE 5MG TAB PO PRN (08:54)
[2022-08-23 14:00] VITALS: BP 138/74
[2022-08-23] MEDS: VERAPAMIL 80MG TABLET PO SCH ×2 (14:00→21:21)
[2022-08-23 20:00] VITALS: BP 162/72
[2022-08-23 21:01] VITALS: BP 146/72
[2022-08-23] MEDS: SENNA 8.6 MG TAB (SENOKOT) PO SCH (21:20)
[2022-08-23] MEDS: DULoxetine 30MG CAPSULE (CYMBALTA) PO SCH (21:21)
[2022-08-24] VITALS (8 sets, daily range): BP systolic 122–158; BP diastolic 60–82
[2022-08-24] MEDS: VERAPAMIL 80MG TABLET PO SCH ×3 (05:36→21:42)
[2022-08-24] MEDS: PANTOPRAZOLE 40MG TAB (PROTONIX) PO SCH (07:43)
[2022-08-24] MEDS: DOCUSATE SODIUM 100MG CAPSULE PO SCH ×2 (07:43→21:41)
[2022-08-24] MEDS: DIGOXIN 0.25 MG TAB PO SCH (07:43)
[2022-08-24] MEDS: ACETAMINOPHEN 500 MG TAB PO SCH ×3 (07:43→21:41)
[2022-08-24] MEDS: ATORVASTATIN 20 MG TAB PO SCH (07:43)
[2022-08-24] MEDS: APIXABAN 5 MG TAB (ELIQUIS) PO SCH ×2 (07:43→21:41)
[2022-08-24] MEDS: REMEDY PHYTOPLEX Z-GUARD PASTE 113GM TUBE (FROM STOREROOM PRODUCT) TOP SCH ×3 (07:44→21:00)
[2022-08-24 09:18] LABS: BASO # 0.1 10^3/uL (0.0-0.2); BASO % 0.7 % (0.0-1.0); EOS # 0.4 10^3/uL (0.0-0.5); EOS % 3.9 % (0.0-3.0); HEMATOCRIT 32.5 % (42.0-52.0); HEMOGLOBIN 10.5 g/dl (13.5-17.5); LYMPH % 19.1 % (24.0-44.0); MEAN CORPUSCULAR HEMOGLOBIN 29.6 pg (27.0-33.0); MEAN CORPUSCULAR HGB CONC 32.3 g/dl (32.0-36.5); MEAN CORPUSCULAR VOLUME 91.5 fl (80.0-96.0); MONO # 0.7 10^3/uL (0.0-0.8); NEUTROPHILS # 7.1 10^3/uL (1.5-8.5); NEUTROPHILS % 68.8 % (36.0-66.0); PLATELET COUNT, AUTOMATED 436 10^3/uL (150-450); RED BLOOD COUNT 3.55 10^6/uL (4.30-6.10); WHITE BLOOD COUNT 10.4 10^3/uL (4.0-10.0)
[2022-08-24 09:44] LABS: BLOOD UREA NITROGEN 22 MG/DL (9-23); CALCIUM LEVEL 9.1 MG/DL (8.3-10.6); CARBON DIOXIDE LEVEL 24 MMOL/L (20-31); CHLORIDE LEVEL 105 MMOL/L (98-107); CREATININE FOR GFR 0.76 MG/DL (0.70-1.30); GLOMERULAR FILTRATION RATE > 60.0 (>49); GLUCOSE, FASTING 105 MG/DL (74-106); POTASSIUM SERUM 4.4 MMOL/L (3.5-5.1); SODIUM LEVEL 139 MMOL/L (136-145)
[2022-08-24] MEDS ORDERED: FUROSEMIDE 20MG/2ML VIAL IV ONE (10:40)
[2022-08-24] MEDS ORDERED: diphenhydrAMINE 25MG CAP PO ONE (10:40)
[2022-08-24] MEDS ORDERED: ACETAMINOPHEN TAB 650MG DOSE (2X325MG) PO ONE (10:40)
[2022-08-24] MEDS: oxyCODONE 5MG TAB PO PRN (14:54)
[2022-08-24] MEDS: DULoxetine 30MG CAPSULE (CYMBALTA) PO SCH (21:41)
[2022-08-24] MEDS: SENNA 8.6 MG TAB (SENOKOT) PO SCH (21:41)
[2022-08-25 05:53] VITALS: BP 162/74
[2022-08-25] MEDS: VERAPAMIL 80MG TABLET PO SCH (05:56)
[2022-08-25 07:20] LABS: BASO # 0.1 10^3/uL (0.0-0.2); BASO % 0.6 % (0.0-1.0); EOS # 0.6 10^3/uL (0.0-0.5); EOS % 6.8 % (0.0-3.0); HEMATOCRIT 35.2 % (42.0-52.0); HEMOGLOBIN 11.2 g/dl (13.5-17.5); LYMPH % 21.9 % (24.0-44.0); MEAN CORPUSCULAR HEMOGLOBIN 28.7 pg (27.0-33.0); MEAN CORPUSCULAR HGB CONC 31.8 g/dl (32.0-36.5); MEAN CORPUSCULAR VOLUME 90.3 fl (80.0-96.0); MONO # 0.7 10^3/uL (0.0-0.8); MONO % 7.6 % (2.0-8.0); NEUTROPHILS # 5.7 10^3/uL (1.5-8.5); NEUTROPHILS % 62.5 % (36.0-66.0); PLATELET COUNT, AUTOMATED 361 10^3/uL (150-450); WHITE BLOOD COUNT 9.1 10^3/uL (4.0-10.0)
[2022-08-25] MEDS: REMEDY PHYTOPLEX Z-GUARD PASTE 113GM TUBE (FROM STOREROOM PRODUCT) TOP SCH ×3 (09:00→21:00)
[2022-08-25] MEDS: PANTOPRAZOLE 40MG TAB (PROTONIX) PO SCH (09:06)
[2022-08-25] MEDS: DOCUSATE SODIUM 100MG CAPSULE PO SCH ×2 (09:06→21:00)
[2022-08-25] MEDS: ATORVASTATIN 20 MG TAB PO SCH (09:06)
[2022-08-25] MEDS: ACETAMINOPHEN 500 MG TAB PO SCH ×3 (09:07→21:13)
[2022-08-25] MEDS: oxyCODONE 5MG TAB PO PRN (09:08)
[2022-08-25] MEDS: DIGOXIN 0.25 MG TAB PO SCH (09:08)
[2022-08-25] MEDS: APIXABAN 5 MG TAB (ELIQUIS) PO SCH ×2 (09:08→21:13)
[2022-08-25] MEDS ORDERED: VERAPAMIL 80MG TABLET PO SCH (12:00)
[2022-08-25] MEDS: METOPROLOL TART 25 MG TABLET PO SCH ×2 (12:24→17:37)
[2022-08-25] MEDS: GABAPENTIN 100 MG CAP PO SCH ×3 (12:24→21:13)
[2022-08-25 14:00] VITALS: BP 122/59
[2022-08-25 20:00] VITALS: BP 129/67
[2022-08-25] MEDS: SENNA 8.6 MG TAB (SENOKOT) PO SCH (21:00)
[2022-08-25] MEDS: DULoxetine 30MG CAPSULE (CYMBALTA) PO SCH (21:12)
[2022-08-25 23:59] VITALS: BP 130/60
[2022-08-26 06:31] VITALS: BP 115/59
[2022-08-26] MEDS: METOPROLOL TART 25 MG TABLET PO SCH ×4 (06:31→17:21)
[2022-08-26 08:41] LABS: BASO # 0.1 10^3/uL (0.0-0.2); BASO % 0.8 % (0.0-1.0); EOS # 0.4 10^3/uL (0.0-0.5); EOS % 3.9 % (0.0-3.0); HEMOGLOBIN 12.7 g/dl (13.5-17.5); LYMPH % 19.6 % (24.0-44.0); MEAN CORPUSCULAR HEMOGLOBIN 31.1 pg (27.0-33.0); MEAN CORPUSCULAR HGB CONC 33.4 g/dl (32.0-36.5); MEAN CORPUSCULAR VOLUME 93.1 fl (80.0-96.0); MONO # 0.7 10^3/uL (0.0-0.8); MONO % 6.3 % (2.0-8.0); NEUTROPHILS % 68.4 % (36.0-66.0); PLATELET COUNT, AUTOMATED 500 10^3/uL (150-450); RED BLOOD COUNT 4.08 10^6/uL (4.30-6.10); WHITE BLOOD COUNT 10.3 10^3/uL (4.0-10.0)
[2022-08-26] MEDS: DOCUSATE SODIUM 100MG CAPSULE PO SCH ×2 (09:00→20:21)
[2022-08-26] MEDS: REMEDY PHYTOPLEX Z-GUARD PASTE 113GM TUBE (FROM STOREROOM PRODUCT) TOP SCH ×3 (09:00→20:20)
[2022-08-26 09:07] LABS: BLOOD UREA NITROGEN 23 MG/DL (9-23); CARBON DIOXIDE LEVEL 25 MMOL/L (20-31); CHLORIDE LEVEL 105 MMOL/L (98-107); CREATININE FOR GFR 0.78 MG/DL (0.70-1.30); GLOMERULAR FILTRATION RATE > 60.0 (>49); GLUCOSE, FASTING 111 MG/DL (74-106); POTASSIUM SERUM 4.6 MMOL/L (3.5-5.1); SODIUM LEVEL 139 MMOL/L (136-145)
[2022-08-26] MEDS: PANTOPRAZOLE 40MG TAB (PROTONIX) PO SCH (09:20)
[2022-08-26] MEDS: GABAPENTIN 100 MG CAP PO SCH ×3 (09:20→20:20)
[2022-08-26] MEDS: APIXABAN 5 MG TAB (ELIQUIS) PO SCH ×2 (09:20→20:20)
[2022-08-26] MEDS: ATORVASTATIN 20 MG TAB PO SCH (09:20)
[2022-08-26] MEDS: ACETAMINOPHEN 500 MG TAB PO SCH ×3 (09:21→20:20)
[2022-08-26] MEDS: DIGOXIN 0.25 MG TAB PO SCH (09:21)
[2022-08-26 12:15] VITALS: BP 119/58
[2022-08-26 14:25] VITALS: BP 128/62
[2022-08-26 19:21] VITALS: BP 126/61
[2022-08-26] MEDS: DULoxetine 30MG CAPSULE (CYMBALTA) PO SCH (20:20)
[2022-08-26] MEDS: oxyCODONE 5MG TAB PO PRN (20:20)
[2022-08-26] MEDS: SENNA 8.6 MG TAB (SENOKOT) PO SCH (20:22)
[2022-08-27 05:22] VITALS: BP 144/69
[2022-08-27] MEDS: METOPROLOL TART 25 MG TABLET PO SCH ×5 (05:36→23:13)
[2022-08-27] MEDS: DOCUSATE SODIUM 100MG CAPSULE PO SCH ×2 (08:36→20:32)
[2022-08-27] MEDS: APIXABAN 5 MG TAB (ELIQUIS) PO SCH ×2 (08:36→20:32)
[2022-08-27] MEDS: ATORVASTATIN 20 MG TAB PO SCH (08:37)
[2022-08-27] MEDS: DIGOXIN 0.25 MG TAB PO SCH (08:37)
[2022-08-27] MEDS: PANTOPRAZOLE 40MG TAB (PROTONIX) PO SCH (08:37)
[2022-08-27] MEDS: GABAPENTIN 100 MG CAP PO SCH ×3 (08:37→20:32)
[2022-08-27] MEDS: ACETAMINOPHEN 500 MG TAB PO SCH ×3 (08:38→20:31)
[2022-08-27] MEDS: REMEDY PHYTOPLEX Z-GUARD PASTE 113GM TUBE (FROM STOREROOM PRODUCT) TOP SCH ×3 (08:38→20:32)
[2022-08-27 14:00] VITALS: BP 130/61
[2022-08-27 20:00] VITALS: BP 145/74
[2022-08-27] MEDS: DULoxetine 30MG CAPSULE (CYMBALTA) PO SCH (20:32)
[2022-08-27] MEDS: SENNA 8.6 MG TAB (SENOKOT) PO SCH (20:32)
[2022-08-28] MEDS: METOPROLOL TART 25 MG TABLET PO SCH ×4 (05:51→23:28)
[2022-08-28 06:00] VITALS: BP 158/88
[2022-08-28] MEDS: ATORVASTATIN 20 MG TAB PO SCH (07:02)
[2022-08-28] MEDS: PANTOPRAZOLE 40MG TAB (PROTONIX) PO SCH (07:03)
[2022-08-28] MEDS: DIGOXIN 0.25 MG TAB PO SCH (07:03)
[2022-08-28] MEDS: ACETAMINOPHEN 500 MG TAB PO SCH ×3 (07:03→20:31)
[2022-08-28] MEDS: APIXABAN 5 MG TAB (ELIQUIS) PO SCH ×2 (07:03→20:31)
[2022-08-28] MEDS: GABAPENTIN 100 MG CAP PO SCH ×3 (07:04→20:31)
[2022-08-28] MEDS: REMEDY PHYTOPLEX Z-GUARD PASTE 113GM TUBE (FROM STOREROOM PRODUCT) TOP SCH ×3 (07:04→20:31)
[2022-08-28] MEDS: DOCUSATE SODIUM 100MG CAPSULE PO SCH ×2 (07:04→20:31)
[2022-08-28 13:59] VITALS: BP 134/60
[2022-08-28 19:27] VITALS: BP 141/70
[2022-08-28] MEDS: DULoxetine 30MG CAPSULE (CYMBALTA) PO SCH (20:30)
[2022-08-28] MEDS: SENNA 8.6 MG TAB (SENOKOT) PO SCH (20:31)
[2022-08-29 05:41] VITALS: BP 157/80
[2022-08-29 05:42] VITALS: BP 157/80
[2022-08-29] MEDS: METOPROLOL TART 25 MG TABLET PO SCH (05:42)
[2022-08-29 06:05] LABS: BASO # 0.1 10^3/uL (0.0-0.2); BASO % 0.9 % (0.0-1.0); EOS # 0.3 10^3/uL (0.0-0.5); EOS % 3.3 % (0.0-3.0); HEMATOCRIT 36.1 % (42.0-52.0); HEMOGLOBIN 11.4 g/dl (13.5-17.5); LYMPH # 2.6 10^3/uL (1.5-5.0); MEAN CORPUSCULAR HEMOGLOBIN 29.2 pg (27.0-33.0); MEAN CORPUSCULAR HGB CONC 31.6 g/dl (32.0-36.5); MEAN CORPUSCULAR VOLUME 92.6 fl (80.0-96.0); MONO # 0.6 10^3/uL (0.0-0.8); MONO % 6.8 % (2.0-8.0); NEUTROPHILS # 5.1 10^3/uL (1.5-8.5); NEUTROPHILS % 58.4 % (36.0-66.0); PLATELET COUNT, AUTOMATED 413 10^3/uL (150-450); WHITE BLOOD COUNT 8.7 10^3/uL (4.0-10.0)
[2022-08-29 06:31] LABS: BLOOD UREA NITROGEN 22 MG/DL (9-23); CALCIUM LEVEL 8.8 MG/DL (8.3-10.6); CARBON DIOXIDE LEVEL 26 MMOL/L (20-31); CHLORIDE LEVEL 106 MMOL/L (98-107); CREATININE FOR GFR 0.75 MG/DL (0.70-1.30); GLOMERULAR FILTRATION RATE > 60.0 (>49); GLUCOSE, FASTING 112 MG/DL (74-106); POTASSIUM SERUM 5.1 MMOL/L (3.5-5.1); SODIUM LEVEL 139 MMOL/L (136-145)
[2022-08-29] MEDS: DIGOXIN 0.25 MG TAB PO SCH (08:12)
[2022-08-29] MEDS: DOCUSATE SODIUM 100MG CAPSULE PO SCH (08:12)
[2022-08-29] MEDS: GABAPENTIN 100 MG CAP PO SCH (08:12)
[2022-08-29] MEDS: ATORVASTATIN 20 MG TAB PO SCH (08:12)
[2022-08-29] MEDS: APIXABAN 5 MG TAB (ELIQUIS) PO SCH (08:12)
[2022-08-29] MEDS: PANTOPRAZOLE 40MG TAB (PROTONIX) PO SCH (08:12)
[2022-08-29] MEDS: REMEDY PHYTOPLEX Z-GUARD PASTE 113GM TUBE (FROM STOREROOM PRODUCT) TOP SCH (08:13)
[2022-08-29] MEDS: ACETAMINOPHEN 500 MG TAB PO SCH (08:13)
[2022-08-29] MEDS ORDERED: ELIQ5TAB PO (10:01)
[2022-08-29] MEDS ORDERED: OXYC-517 PO (10:01)
[2022-08-29] MEDS ORDERED: DULO30CA9 PO (10:01)
[2022-08-29] MEDS ORDERED: ATOR80TA59 PO (10:01)
[2022-08-29] MEDS ORDERED: METO1TAB87 PO (10:01)
[2022-08-29] MEDS ORDERED: DIGO0.253 PO (10:01)
[2022-08-29] MEDS ORDERED: GABA-1171 PO (10:01)
== END 2022-08-29 12:15 | disposition home health service (06) | DRG 560 ==
LOC: M MS4PR 15:40 → M PM&R 15:40 → UNDOADMIN 15:40
PROVIDERS: ADMIT Physical Medicine & Rehabilitation; ATTEND Physical Medicine & Rehabilitation
PROC: 30233N1 Transfusion of Nonautologous Red Blood Cells into Peripheral Vein, Percutaneous Approach (ICD-10-PCS; principal; 2022-08-24)
DX: S72.002D Fracture of unspecified part of neck of left femur, subsequent encounter for closed fracture with routine healing (principal); D62 Acute posthemorrhagic anemia; R26.89 Other abnormalities of gait and mobility; N32.9 Bladder disorder, unspecified; I95.1 Orthostatic hypotension; I48.91 Unspecified atrial fibrillation; I10 Essential (primary) hypertension; E78.5 Hyperlipidemia, unspecified; G47.33 Obstructive sleep apnea (adult) (pediatric); F41.9 Anxiety disorder, unspecified; N40.1 Benign prostatic hyperplasia with lower urinary tract symptoms; G43.909 Migraine, unspecified, not intractable, without status migrainosus; M43.02 Spondylolysis, cervical region; R06.02 Shortness of breath; E11.9 Type 2 diabetes mellitus without complications; K76.0 Fatty (change of) liver, not elsewhere classified; M47.22 Other spondylosis with radiculopathy, cervical region; Z74.09 Other reduced mobility; Z74.1 Need for assistance with personal care; Z79.4 Long term (current) use of insulin; Z79.899 Other long term (current) drug therapy; Z98.1 Arthrodesis status; Z79.01 Long term (current) use of anticoagulants

== ENCOUNTER → 2022-09-08 | Outpatient (CLI) | payer MEDICARE, OTHER ==
[~2022-09-08] MED LIST changes: +GABA-1171 PO; +METO1TAB87 PO; +OXYC-517 PO
== END ==
LOC: M SOG 08:10
PROVIDERS: ATTEND Orthopaedic Surgery
DX: Z47.89 Encounter for other orthopedic aftercare (principal); Z98.890 Other specified postprocedural states

== ENCOUNTER → 2022-09-22 | Outpatient (CLI) | payer MEDICARE, OTHER | LOC: M SOG 08:25 | PROVIDERS: ATTEND Orthopaedic Surgery | DX: S72.92XD Unspecified fracture of left femur, subsequent encounter for closed fracture with routine healing (principal); W18.30XD Fall on same level, unspecified, subsequent encounter ==

== ENCOUNTER → 2022-09-23 | Outpatient (REF) | payer MEDICARE, OTHER | LOC: M LAB REF 16:05 | PROVIDERS: ATTEND Internal Medicine | DX: I48.20 Chronic atrial fibrillation, unspecified (principal) ==

== ENCOUNTER → 2022-11-01 | Outpatient (CLI) | payer MEDICARE, OTHER ==
[~2022-11-01] MED LIST changes: +GASTROGRAFIN SOLUTION 30ML As Ordered ONE; +ISOVUE-370 76% 100ML VIAL As Ordered ONE
== END ==
LOC: M RAD 11:59
PROVIDERS: ATTEND Internal Medicine
DX: R63.4 Abnormal weight loss (principal)
CPT/HCPCS: 74177; Q9963; Q9967

== ENCOUNTER → 2022-11-02 | Outpatient (REF) | payer MEDICARE, OTHER ==
[~2022-11-02] MED LIST changes: -GASTROGRAFIN SOLUTION 30ML As Ordered ONE; -ISOVUE-370 76% 100ML VIAL As Ordered ONE
[2022-11-02 19:20] LABS: CARCINOEMBRYONIC ANTIGEN < 2.0 NG/ML (<2.5)
[2022-11-02 19:34] LABS: CA19-9 TUMOR MARKER,CARBOHYDRA 1.6 U/ML (<35.0)
== END ==
LOC: M LAB REF 16:13
PROVIDERS: ATTEND Internal Medicine
DX: R19.01 Right upper quadrant abdominal swelling, mass and lump (principal); R63.4 Abnormal weight loss; Z80.0 Family history of malignant neoplasm of digestive organs

== ENCOUNTER → 2022-11-03 | Outpatient (CLI) | payer MEDICARE, OTHER | LOC: M SOG 11:04 | PROVIDERS: ATTEND Orthopaedic Surgery | DX: S72.92XD Unspecified fracture of left femur, subsequent encounter for closed fracture with routine healing (principal) ==

== ENCOUNTER → 2023-01-13 | Outpatient (REF) | payer MEDICARE, OTHER ==
[2023-01-13 17:23] LABS: APPEARANCE, URINE HAZY (CLEAR); BACTERIA, URINE AUTO NEGATIVE (NEGATIVE); BILIRUBIN, URINE AUTO NEGATIVE (NEGATIVE); BLOOD, URINE BLOOD NEGATIVE (NEGATIVE); COLOR, URINE YELLOW (YELLOW); GLUCOSE, URINE (UA) AUTO NEGATIVE (NEGATIVE); KETONE, URINE AUTO NEGATIVE (NEGATIVE); LEUKOCYTE ESTERASE, URINE AUTO NEGATIVE (NEGATIVE); NITRITE, URINE AUTO NEGATIVE (NEGATIVE); PROTEIN, URINE AUTO NEGATIVE (NEGATIVE); RBC, URINE AUTO 3 /HPF (0-3); SPECIFIC GRAVITY URINE AUTO 1.023 (1.002-1.035); SQUAMOUS EPITHELIAL CELL UR AU 1 /HPF (0-6); WBC, URINE AUTO 1 /HPF (0-3)
== END ==
LOC: M LABSMT 15:59
PROVIDERS: ATTEND Urology
DX: R35.0 Frequency of micturition (principal)

== ENCOUNTER → 2023-02-02 | Outpatient (CLI) | payer MEDICARE, OTHER | LOC: M SOG 08:20 | PROVIDERS: ATTEND Orthopaedic Surgery | DX: S72.92XD Unspecified fracture of left femur, subsequent encounter for closed fracture with routine healing (principal) ==

== ENCOUNTER → 2023-02-10 | Outpatient (CLI) | payer MEDICARE, OTHER ==
[2023-02-10 16:07] LABS: BLOOD UREA NITROGEN 17 MG/DL (9-23); GLOMERULAR FILTRATION RATE > 60.0 (>49)
== END ==
LOC: M LAB 14:47
PROVIDERS: ATTEND Nurse Practitioner Family
DX: K86.2 Cyst of pancreas (principal)

== ENCOUNTER → 2023-02-24 | Outpatient (CLI) | payer MEDICARE, OTHER ==
[~2023-02-24] MED LIST changes: +PROHANCE 279.3MG/ML 15ML VIAL ONE; +PROHANCE 279.3MG/ML 5ML VIAL ONE
== END ==
LOC: M PLAIMG 07:32
PROVIDERS: ATTEND Nurse Practitioner Family
DX: K86.2 Cyst of pancreas (principal); N28.1 Cyst of kidney, acquired
CPT/HCPCS: 74183; A9576

== ENCOUNTER 2023-04-03 06:16 | Emergency (ER) | payer MEDICARE, OTHER ==
[~2023-04-03] VITALS: Ht 185.4 cm; Wt 111.4 kg
[~2023-04-03 06:16] MED LIST changes: -PROHANCE 279.3MG/ML 15ML VIAL ONE; -PROHANCE 279.3MG/ML 5ML VIAL ONE
[2023-04-03 06:45] LABS: BASO # 0.1 10^3/uL (0.0-0.2); EOS # 0.8 10^3/uL (0.0-0.5); EOS % 9.4 % (0.0-3.0); HEMATOCRIT 38.7 % (42.0-52.0); LYMPH # 2.9 10^3/uL (1.5-5.0); LYMPH % 35.3 % (24.0-44.0); MEAN CORPUSCULAR HGB CONC 33.6 g/dl (32.0-36.5); MEAN CORPUSCULAR VOLUME 86.4 fl (80.0-96.0); MONO # 0.6 10^3/uL (0.0-0.8); MONO % 7.3 % (2.0-8.0); NEUTROPHILS # 3.9 10^3/uL (1.5-8.5); NEUTROPHILS % 46.8 % (36.0-66.0); PLATELET COUNT, AUTOMATED 189 10^3/uL (150-450); RED BLOOD COUNT 4.48 10^6/uL (4.30-6.10); WHITE BLOOD COUNT 8.3 10^3/uL (4.0-10.0)
[2023-04-03] MEDS ORDERED: METO1TAB87 PO (06:56)
[2023-04-03] MEDS ORDERED: FLOM0.4C39 PO (06:56)
[2023-04-03] MEDS ORDERED: LANTINJ4 SC (06:56)
[2023-04-03] MEDS ORDERED: LISI2.5T9 PO (06:56)
[2023-04-03] MEDS ORDERED: ASPI81TA26 PO (06:56)
[2023-04-03 06:57] LABS: INR 1.14; PROTHROMBIN TIME 14.2 SECONDS (12.5-14.5)
[2023-04-03 07:07] LABS: BLOOD UREA NITROGEN 18 MG/DL (9-23); CALCIUM LEVEL 8.8 MG/DL (8.3-10.6); CARBON DIOXIDE LEVEL 28 MMOL/L (20-31); CHLORIDE LEVEL 105 MMOL/L (98-107); CK-MB VALUE MASS < 1.0 NG/ML (<3.6); CPK CREATINE PHOSPHOKINASE 87 U/L (46-171); CREATININE FOR GFR 0.77 MG/DL (0.70-1.30); GLOMERULAR FILTRATION RATE > 60.0 (>49); GLUCOSE, FASTING 157 MG/DL (74-106); MB/CK RELATIVE INDEX 1.14 (< OR =4); POTASSIUM SERUM 3.9 MMOL/L (3.5-5.1); SODIUM LEVEL 141 MMOL/L (136-145)
[2023-04-03 08:18] LABS: RSV AMPLIFICATION NEGATIVE (NEGATIVE)
[2023-04-03] MEDS ORDERED: NS 1,000 ML IV ONE (08:20)
[2023-04-03 08:21] LABS: CK-MB VALUE MASS 1.3 NG/ML (<3.6)
[2023-04-03 08:24] LABS: ALBUMIN 3.6 G/DL (3.2-5.2); BILIRUBIN,DIRECT 0.3 MG/DL (<0.4); BILIRUBIN,TOTAL 0.7 MG/DL (0.3-1.2); MB/CK RELATIVE INDEX 1.64 (< OR =4); TOTAL PROTEIN 6.2 G/DL (5.7-8.2)
[2023-04-03] MEDS ORDERED: ISOVUE-370 76% 100ML VIAL As Ordered ONE (08:28)
[2023-04-03] MEDS ORDERED: MORPHINE 2 MG/ML 1ML VIAL IV PRN (08:30)
[2023-04-03] MEDS ORDERED: SUCRALFATE SUSP 1GM/10ML UD PO ONE (11:20)
[2023-04-03] MEDS ORDERED: OMEP40CA4 PO (11:21)
[2023-04-03] MEDS ORDERED: SUCR1TA PO (11:21)
[2023-04-03 11:52] VITALS: BP 149/70; TEMP 97.4; O2SAT 98
== END 2023-04-03 11:47 | disposition home or self-care (01) ==
LOC: M ED 06:16 → EDBD 06:16 → M ED 11:47
DX: R10.9 Unspecified abdominal pain (principal); I48.91 Unspecified atrial fibrillation; I10 Essential (primary) hypertension; E78.5 Hyperlipidemia, unspecified; G47.33 Obstructive sleep apnea (adult) (pediatric); Z79.01 Long term (current) use of anticoagulants; Z79.899 Other long term (current) drug therapy; Z87.891 Personal history of nicotine dependence
CPT/HCPCS: 71045; 74177; 76705; 80048; 80076; 82550; 82553; 83605; 83690; 84484; 85025; 85610; 87631; 93005; 93041; 96361; 96374; 99285; Q9967

== ENCOUNTER → 2023-04-21 | Outpatient (CLI) | payer MEDICARE, OTHER ==
[~2023-04-21] MED LIST changes: +ASPI81TA26 PO; +OMEP40CA4 PO; +SUCR1TA PO
== END ==
LOC: M RAD 07:01
PROVIDERS: ATTEND Internal Medicine
DX: R10.11 Right upper quadrant pain (principal)
CPT/HCPCS: 78227; A9537

== ENCOUNTER → 2023-07-07 | Outpatient (CLI) | payer MEDICARE, OTHER | LOC: M RAD 13:57 | PROVIDERS: ATTEND Physician Assistant | DX: I65.23 Occlusion and stenosis of bilateral carotid arteries (principal) ==

== ENCOUNTER → 2023-07-28 | Outpatient (CLI) | payer MEDICARE, OTHER ==
[~2023-07-28] MED LIST changes: +ISOVUE-370 76% 100ML VIAL As Ordered ONE
== END ==
LOC: M RAD 15:32
PROVIDERS: ATTEND Internal Medicine
DX: R05.9 Cough, unspecified (principal); R61 Generalized hyperhidrosis
CPT/HCPCS: 71260; Q9967

== ENCOUNTER → 2023-09-07 | Outpatient (REF) | payer MEDICARE, OTHER ==
[~2023-09-07] MED LIST changes: -ISOVUE-370 76% 100ML VIAL As Ordered ONE
== END ==
LOC: M LAB REF 17:25
PROVIDERS: ATTEND Nurse Practitioner Family
DX: R10.9 Unspecified abdominal pain (principal)

== ENCOUNTER → 2023-11-10 | Outpatient (CLI) | payer MEDICARE, OTHER ==
[~2023-11-10] MED LIST changes: +BACL10TA2 PO; +ONDA-84 PO; +PROC10TA5 PO
[2023-11-10 13:16] LABS: CHOLESTEROL RISK RATIO 3.88 (<5); HDL CHOLESTEROL 25.2 MG/DL (>40); LDL CHOLESTEROL 41.6 MG/DL (<100); NON-HDL-C 72.8 MG/DL
== END ==
LOC: M WUC 08:34
PROVIDERS: ATTEND Physician Assistant
DX: E78.00 Pure hypercholesterolemia, unspecified (principal)

== ENCOUNTER 2024-03-04 17:09 | Observation (INO) | payer MEDICARE, OTHER ==
[~2024-03-04] VITALS: Ht 185.4 cm; Wt 90.6 kg
[2024-03-04 19:16] LABS: BASO # 0.1 10^3/uL (0.0-0.2); BASO % 0.4 % (0.0-1.0); EOS # 0.4 10^3/uL (0.0-0.5); EOS % 3.3 % (0.0-3.0); HEMATOCRIT 32.9 % (42.0-52.0); HEMOGLOBIN 10.1 g/dl (13.5-17.5); LYMPH # 0.8 10^3/uL (1.5-5.0); LYMPH % 6.1 % (24.0-44.0); MEAN CORPUSCULAR HEMOGLOBIN 26.2 pg (27.0-33.0); MEAN CORPUSCULAR HGB CONC 30.7 g/dl (32.0-36.5); MEAN CORPUSCULAR VOLUME 85.5 fl (80.0-96.0); MONO # 0.1 10^3/uL (0.0-0.8); MONO % 0.6 % (2.0-8.0); NEUTROPHILS # 11.1 10^3/uL (1.5-8.5); NEUTROPHILS % 89.2 % (36.0-66.0); PLATELET COUNT, AUTOMATED 304 10^3/uL (150-450); RED BLOOD COUNT 3.85 10^6/uL (4.30-6.10); WHITE BLOOD COUNT 12.5 10^3/uL (4.0-10.0)
[2024-03-04 19:30] LABS: INR 1.24; PARTIAL THROMBOPLASTIN TIME 32.3 SECONDS (24.8-34.2); PROTHROMBIN TIME 15.2 SECONDS (12.5-14.5)
[2024-03-04] MEDS: INSULIN LISPRO (NovoLOG) PER UNIT SC SCH (21:00)
[2024-03-04 21:39] LABS: APPEARANCE, URINE HAZY (CLEAR); BACTERIA, URINE AUTO NEGATIVE (NEGATIVE); BILIRUBIN, URINE AUTO NEGATIVE (NEGATIVE); BLOOD, URINE BLOOD NEGATIVE (NEGATIVE); COLOR, URINE AMBER (YELLOW); GLUCOSE, URINE (UA) AUTO NEGATIVE (NEGATIVE); KETONE, URINE AUTO NEGATIVE (NEGATIVE); LEUKOCYTE ESTERASE, URINE AUTO NEGATIVE (NEGATIVE); MUCUS, URINE SMALL (NEGATIVE); NITRITE, URINE AUTO NEGATIVE (NEGATIVE); PROTEIN, URINE AUTO NEGATIVE (NEGATIVE); RBC, URINE AUTO 0 /HPF (0-3); SPECIFIC GRAVITY URINE AUTO 1.023 (1.002-1.035); SQUAMOUS EPITHELIAL CELL UR AU 0 /HPF (0-6); WBC, URINE AUTO 2 /HPF (0-3)
[2024-03-04] MEDS ORDERED: DULO30CA9 PO (23:04)
[2024-03-04] MEDS ORDERED: MULT-40 PO (23:04)
[2024-03-04] MEDS ORDERED: ASPI81TA26 PO (23:04)
[2024-03-04] MEDS ORDERED: METO1TAB87 PO (23:04)
[2024-03-04] MEDS ORDERED: HOME MED LIST COMPLETE! XX SCH (23:15)
[2024-03-04] MEDS ORDERED: MOM 30ML SUSPENSION UDC PO PRN (23:20)
[2024-03-04] MEDS: ASPIRIN 81MG ENTERIC TABLET PO SCH (23:25)
[2024-03-04] MEDS ORDERED: GLUCAGON INJ 1MG VIAL SC PRN (23:35)
[2024-03-04] MEDS ORDERED: GLUCOSE 4 GM CHEW PO PRN (23:35)
[2024-03-04] MEDS ORDERED: DEXTROSE 50% 50ML SYRINGE IV PRN (23:35)
[2024-03-05] MEDS: APIXABAN 5 MG TAB (ELIQUIS) PO SCH (00:11)
[2024-03-05] MEDS: TAMSULOSIN 0.4 MG CAP PO SCH (00:11)
[2024-03-05] MEDS: METOPROLOL TART 25 MG TABLET PO SCH (00:12)
[2024-03-05] MEDS: ATORVASTATIN 20 MG TAB PO SCH (00:13)
[2024-03-05 00:14] VITALS: BP 141/62
[2024-03-05] MEDS: LISINOPRIL *2.5 MG* TAB PO SCH (00:14)
[2024-03-05] MEDS: LEVEMIR (INSULIN DETEMIR) 1 UNITS/0.01ML SC SCH (00:15)
[2024-03-05 00:20] LABS: HEMOGLOBIN A1c 5.8 % (4.0-6.0)
[2024-03-05 08:10] LABS: HEMATOCRIT 29.6 % (42.0-52.0); HEMOGLOBIN 9.1 g/dl (13.5-17.5); MEAN CORPUSCULAR HEMOGLOBIN 26.2 pg (27.0-33.0); MEAN CORPUSCULAR HGB CONC 30.7 g/dl (32.0-36.5); MEAN CORPUSCULAR VOLUME 85.3 fl (80.0-96.0); PLATELET COUNT, AUTOMATED 246 10^3/uL (150-450); RED BLOOD COUNT 3.47 10^6/uL (4.30-6.10); WHITE BLOOD COUNT 9.8 10^3/uL (4.0-10.0)
[2024-03-05 08:35] LABS: ALBUMIN 2.6 G/DL (3.2-5.2); ALKALINE PHOSPHATASE 129 U/L (46-116); ALT/SGPT 67 U/L (7.0-40); AST/SGOT 56 U/L (<34); BILIRUBIN,TOTAL 1.3 MG/DL (0.3-1.2); BLOOD UREA NITROGEN 15 MG/DL (9-23); CALCIUM LEVEL 8.4 MG/DL (8.3-10.6); CARBON DIOXIDE LEVEL 27 MMOL/L (20-31); CHLORIDE LEVEL 105 MMOL/L (98-107); CHOLESTEROL LEVEL 94 MG/DL (<200); CHOLESTEROL RISK RATIO 2.91 (<5); CREATININE FOR GFR 0.54 MG/DL (0.70-1.30); GLOMERULAR FILTRATION RATE > 60.0 (>42); GLUCOSE, FASTING 98 MG/DL (74-106); HDL CHOLESTEROL 32.2 MG/DL (>40); LDL CHOLESTEROL 48.6 MG/DL (<100); NON-HDL-C 61.8 MG/DL; POTASSIUM SERUM 4.4 MMOL/L (3.5-5.1); SODIUM LEVEL 137 MMOL/L (136-145); TOTAL PROTEIN 5.9 G/DL (5.7-8.2); TRIGLYCERIDES LEVEL 66 MG/DL (<150)
[2024-03-05] MEDS: INSULIN LISPRO (NovoLOG) PER UNIT SC SCH (08:35)
[2024-03-05] MEDS ORDERED: ISOVUE-370 76% 100ML VIAL As Ordered ONE (08:49)
[2024-03-05 09:04] LABS: THYROID STIMULATING HORMONE 1.566 uIU/ML (0.55-4.78)
[2024-03-05] MEDS: DOCUSATE SODIUM 100MG CAPSULE PO SCH (10:58)
[2024-03-05] MEDS: DULoxetine 30MG CAPSULE (CYMBALTA) PO SCH (10:58)
[2024-03-05] MEDS: METOPROLOL TART 25 MG TABLET PO ONE (13:48)
[2024-03-05] MEDS: METOPROLOL 5 MG/5 ML VIAL IV STA (13:50)
[2024-03-05] MEDS ORDERED: METO1TAB87 PO (15:24)
[2024-03-05 16:29] VITALS: BP 116/56; TEMP 97.3; O2SAT 100
== END 2024-03-05 17:34 | disposition home or self-care (01) ==
LOC: M ED 17:09 → M ED INP 23:19 → INTOOBSV 23:19
PROVIDERS: ADMIT Family Medicine; ATTEND Family Medicine
DX: H53.132 Sudden visual loss, left eye (principal); R93.0 Abnormal findings on diagnostic imaging of skull and head, not elsewhere classified; I65.21 Occlusion and stenosis of right carotid artery; C25.2 Malignant neoplasm of tail of pancreas; R29.702 NIHSS score 2; I67.82 Cerebral ischemia; G31.1 Senile degeneration of brain, not elsewhere classified; I48.91 Unspecified atrial fibrillation; I10 Essential (primary) hypertension; E11.9 Type 2 diabetes mellitus without complications; E78.5 Hyperlipidemia, unspecified; G43.909 Migraine, unspecified, not intractable, without status migrainosus; F41.9 Anxiety disorder, unspecified; N40.0 Benign prostatic hyperplasia without lower urinary tract symptoms; G47.33 Obstructive sleep apnea (adult) (pediatric); K76.0 Fatty (change of) liver, not elsewhere classified; M47.22 Other spondylosis with radiculopathy, cervical region; Z98.890 Other specified postprocedural states; Z87.891 Personal history of nicotine dependence; Z79.899 Other long term (current) drug therapy; Z79.82 Long term (current) use of aspirin; Z79.01 Long term (current) use of anticoagulants; Z79.4 Long term (current) use of insulin
CPT/HCPCS: 36415; 70450; 70496; 70498; 71045; 80047; 80053; 80061; 81001; 83036; 84443; 85025; 85027; 85610; 85730; 87486; 87581; 87633; 87798; 93005; 93041; 93306; 93880; 94760; 97161; 97165; 99285; G0378; J1815; Q9967

== ENCOUNTER 2024-03-10 20:29 | Emergency (ER) | payer MEDICARE, OTHER ==
[~2024-03-10] VITALS: Ht 185.4 cm; Wt 90.0 kg
[~2024-03-10 20:29] MED LIST changes: +MULT-40 PO
[2024-03-10 21:45] LABS: BASO % 0.2 % (0.0-1.0); EOS % 0.2 % (0.0-3.0); HEMATOCRIT 29.6 % (42.0-52.0); HEMOGLOBIN 8.9 g/dl (13.5-17.5); LYMPH # 0.4 10^3/uL (1.5-5.0); LYMPH % 3.7 % (24.0-44.0); MEAN CORPUSCULAR HEMOGLOBIN 25.7 pg (27.0-33.0); MEAN CORPUSCULAR HGB CONC 30.1 g/dl (32.0-36.5); MEAN CORPUSCULAR VOLUME 85.5 fl (80.0-96.0); MONO # 0.1 10^3/uL (0.0-0.8); NEUTROPHILS % 94.3 % (36.0-66.0); PLATELET COUNT, AUTOMATED 136 10^3/uL (150-450); RED BLOOD COUNT 3.46 10^6/uL (4.30-6.10); WHITE BLOOD COUNT 10.6 10^3/uL (4.0-10.0)
[2024-03-10 21:56] LABS: INR 1.27; PARTIAL THROMBOPLASTIN TIME 25.7 SECONDS (24.8-34.2); PROTHROMBIN TIME 15.5 SECONDS (12.5-14.5)
[2024-03-10 22:07] LABS: LIPASE 105 U/L (12-53)
[2024-03-10 22:09] LABS: ALBUMIN 2.7 G/DL (3.2-5.2); ALKALINE PHOSPHATASE 120 U/L (46-116); ALT/SGPT 49 U/L (7.0-40); AST/SGOT 40 U/L (<34); BILIRUBIN,DIRECT 0.5 MG/DL (<0.4); BILIRUBIN,TOTAL 1.2 MG/DL (0.3-1.2); BLOOD UREA NITROGEN 15 MG/DL (9-23); CALCIUM LEVEL 7.5 MG/DL (8.3-10.6); CARBON DIOXIDE LEVEL 25 MMOL/L (20-31); CHLORIDE LEVEL 105 MMOL/L (98-107); CK-MB VALUE MASS < 1.0 NG/ML (<3.6); CREATININE FOR GFR 0.52 MG/DL (0.70-1.30); GLOMERULAR FILTRATION RATE > 60.0 (>42); GLUCOSE, FASTING 114 MG/DL (74-106); POTASSIUM SERUM 4.6 MMOL/L (3.5-5.1); SODIUM LEVEL 135 MMOL/L (136-145); TOTAL PROTEIN 5.7 G/DL (5.7-8.2)
[2024-03-10 22:10] LABS: FREE T4 1.05 NG/DL (0.89-1.76); THYROID STIMULATING HORMONE 1.006 uIU/ML (0.55-4.78)
[2024-03-10 22:14] LABS: CPK CREATINE PHOSPHOKINASE 39 U/L (46-171); MB/CK RELATIVE INDEX 2.56 (< OR =4)
[2024-03-10] MEDS ORDERED: ISOVUE-370 76% 100ML VIAL As Ordered ONE (22:28)
[2024-03-10] MEDS: NS 500 ML IV ONE (22:30)
[2024-03-10 23:26] LABS: CK-MB VALUE MASS < 1.0 NG/ML (<3.6)
[2024-03-10 23:37] LABS: CPK CREATINE PHOSPHOKINASE 32 U/L (46-171); MB/CK RELATIVE INDEX 3.12 (< OR =4)
[2024-03-11] MEDS ORDERED: GLUCAGON INJ 1MG VIAL SC PRN (01:25)
[2024-03-11] MEDS ORDERED: DEXTROSE 50% 50ML SYRINGE IV PRN (01:25)
[2024-03-11] MEDS ORDERED: GLUCOSE 4 GM CHEW PO PRN (01:25)
[2024-03-11] MEDS: NS 1,000 ML IV SCH (01:58)
[2024-03-11] MEDS: INSULIN LISPRO (NovoLOG) PER UNIT SC SCH (02:00)
[2024-03-11 06:41] VITALS: BP 136/61
[2024-03-11] MEDS: PIPERACILLIN/TAZOBACTAM SOD 4.5 GM in D5W MINI-BAG PLUS 50 ML IV SCH (06:41)
[2024-03-11] MEDS: TAMSULOSIN 0.4 MG CAP PO SCH (06:41)
[2024-03-11] MEDS: METOPROLOL TART 25 MG TABLET PO SCH (06:41)
[2024-03-11] MEDS: APIXABAN 5 MG TAB (ELIQUIS) PO SCH (06:41)
[2024-03-11] MEDS: DULoxetine 30MG CAPSULE (CYMBALTA) PO SCH (06:45)
[2024-03-11] MEDS ORDERED: PROC10TA5 PO (07:51)
[2024-03-11] MEDS ORDERED: ONDA-84 PO (07:51)
[2024-03-11] MEDS ORDERED: METO25TA4 PO (07:51)
[2024-03-11] MEDS ORDERED: EQL50TAB2 PO (07:51)
[2024-03-11] MEDS ORDERED: HOME MED LIST COMPLETE! XX SCH (07:55)
[2024-03-11] MEDS: ATORVASTATIN 20 MG TAB PO SCH (08:31)
[2024-03-11 08:32] VITALS: BP 117/57; TEMP 97.5; O2SAT 99
[2024-03-11] MEDS ORDERED: APIXABAN 5 MG TAB (ELIQUIS) PO SCH (09:00)
[2024-03-11] MEDS ORDERED: ASPIRIN 325 MG TAB PO SCH (09:00)
[2024-03-11] MEDS ORDERED: LEVEMIR (INSULIN DETEMIR) 1 UNITS/0.01ML SC SCH (21:00)
== END 2024-03-11 08:37 | disposition short-term general hospital (02) ==
LOC: M ED 20:29
DX: R55 Syncope and collapse (principal); R93.89 Abnormal findings on diagnostic imaging of other specified body structures; I48.91 Unspecified atrial fibrillation; I10 Essential (primary) hypertension; E78.5 Hyperlipidemia, unspecified; G47.33 Obstructive sleep apnea (adult) (pediatric); F41.9 Anxiety disorder, unspecified; N40.0 Benign prostatic hyperplasia without lower urinary tract symptoms; Z85.07 Personal history of malignant neoplasm of pancreas; Z79.01 Long term (current) use of anticoagulants; Z79.1 Long term (current) use of non-steroidal anti-inflammatories (NSAID); Z79.4 Long term (current) use of insulin; Z79.810 Long term (current) use of selective estrogen receptor modulators (SERMs); Z79.899 Other long term (current) drug therapy
CPT/HCPCS: 70450; 71046; 74177; 80048; 80076; 82550; 82553; 83690; 84439; 84443; 84484; 85025; 85610; 85730; 87040; 87635; 93005; 93041; 94760; 96360; 96361; 96365; 96366; 99285; J2543; Q9967

== ENCOUNTER → 2024-03-20 | Outpatient (CLI) | payer MEDICARE, OTHER ==
[~2024-03-20] MED LIST changes: +EQL50TAB2 PO; +LIDOCAINE 1% MDV 20ML VIAL As Ordered ONE; +META0.52 PO; +METO25TA4 PO; +MIDAZOLAM INJ 2MG/2ML VIAL As Ordered ONE; +ceFAZolin 2 GM/D5W 50 ML IV BAG As Ordered ONE; +fentaNYL 100 MCG/2 ML INJECTION As Ordered ONE
[2024-03-20 09:45] VITALS: TEMP 98.2
[2024-03-20] MEDS: NS 1,000 ML IV SCH (10:30)
[2024-03-20] MEDS: ceFAZolin SOD 2 GM in IV 1 EA IV ONE (10:31)
[2024-03-20 11:01] LABS: BASO # 0.1 10^3/uL (0.0-0.2); BASO % 0.4 % (0.0-1.0); EOS # 0.6 10^3/uL (0.0-0.5); EOS % 2.3 % (0.0-3.0); HEMATOCRIT 30.4 % (42.0-52.0); LYMPH % 8.2 % (24.0-44.0); MEAN CORPUSCULAR HEMOGLOBIN 25.7 pg (27.0-33.0); MEAN CORPUSCULAR HGB CONC 29.6 g/dl (32.0-36.5); MEAN CORPUSCULAR VOLUME 86.9 fl (80.0-96.0); MONO # 2.3 10^3/uL (0.0-0.8); MONO % 9.4 % (2.0-8.0); NEUTROPHILS # 14.9 10^3/uL (1.5-8.5); NEUTROPHILS % 59.7 % (36.0-66.0); PLATELET COUNT, AUTOMATED 239 10^3/uL (150-450); WHITE BLOOD COUNT 24.9 10^3/uL (4.0-10.0)
[2024-03-20 11:18] LABS: ALBUMIN 2.8 G/DL (3.2-5.2); ALKALINE PHOSPHATASE 184 U/L (46-116); ALT/SGPT 25 U/L (7.0-40); AST/SGOT 31 U/L (<34); BILIRUBIN,TOTAL 0.5 MG/DL (0.3-1.2); BLOOD UREA NITROGEN 11 MG/DL (9-23); CALCIUM LEVEL 8.7 MG/DL (8.3-10.6); CARBON DIOXIDE LEVEL 29 MMOL/L (20-31); CHLORIDE LEVEL 109 MMOL/L (98-107); CREATININE FOR GFR 0.53 MG/DL (0.70-1.30); GLOMERULAR FILTRATION RATE > 60.0 (>42); GLUCOSE, FASTING 78 MG/DL (74-106); POTASSIUM SERUM 4.7 MMOL/L (3.5-5.1); SODIUM LEVEL 143 MMOL/L (136-145)
[2024-03-20 11:38] LABS: CA19-9 TUMOR MARKER,CARBOHYDRA 1.9 U/ML (<35.0)
[2024-03-20 12:00] VITALS: BP 139/63; O2SAT 99
== END ==
LOC: M IRPRO 09:37
PROVIDERS: ATTEND Internal Medicine Hematology & Oncology
DX: C25.9 Malignant neoplasm of pancreas, unspecified (principal)
CPT/HCPCS: 36561; 80053; 85025; 86301; 99152; 99153; C1769; C1894; J0690; J2250; J3010

== ENCOUNTER → 2024-04-15 | Outpatient (CLI) | payer MEDICARE, OTHER ==
[~2024-04-15] MED LIST changes: -LIDOCAINE 1% MDV 20ML VIAL As Ordered ONE; -MIDAZOLAM INJ 2MG/2ML VIAL As Ordered ONE; +PROHANCE 279.3MG/ML 15ML VIAL ONE; +PROHANCE 279.3MG/ML 5ML VIAL ONE; -ceFAZolin 2 GM/D5W 50 ML IV BAG As Ordered ONE; -fentaNYL 100 MCG/2 ML INJECTION As Ordered ONE
== END ==
LOC: M PLAIMG 09:20
PROVIDERS: ATTEND Internal Medicine Hematology & Oncology
DX: C25.9 Malignant neoplasm of pancreas, unspecified (principal)

== ENCOUNTER → 2024-04-25 | Outpatient (REF) | payer MEDICARE, OTHER ==
[~2024-04-25] MED LIST changes: -PROHANCE 279.3MG/ML 15ML VIAL ONE; -PROHANCE 279.3MG/ML 5ML VIAL ONE
== END ==
LOC: M LAB REF 16:25
PROVIDERS: ATTEND Internal Medicine
DX: G60.9 Hereditary and idiopathic neuropathy, unspecified (principal)

== ENCOUNTER 2024-05-16 11:11 | Outpatient (RCR) | payer MEDICARE, OTHER ==
[2023-10-11 11:11] VITALS: BP 96/53; O2SAT 98
[2023-10-11 11:36] LABS: BASO # 0.1 10^3/uL (0.0-0.2); BASO % 0.8 % (0.0-1.0); EOS # 0.5 10^3/uL (0.0-0.5); EOS % 4.9 % (0.0-3.0); HEMATOCRIT 45.5 % (42.0-52.0); HEMOGLOBIN 14.7 g/dl (13.5-17.5); LYMPH # 2.2 10^3/uL (1.5-5.0); LYMPH % 21.7 % (24.0-44.0); MEAN CORPUSCULAR HEMOGLOBIN 28.1 pg (27.0-33.0); MEAN CORPUSCULAR HGB CONC 32.3 g/dl (32.0-36.5); MEAN CORPUSCULAR VOLUME 86.8 fl (80.0-96.0); MONO # 0.7 10^3/uL (0.0-0.8); MONO % 7.1 % (2.0-8.0); NEUTROPHILS # 6.6 10^3/uL (1.5-8.5); NEUTROPHILS % 65.2 % (36.0-66.0); PLATELET COUNT, AUTOMATED 239 10^3/uL (150-450); RED BLOOD COUNT 5.24 10^6/uL (4.30-6.10); WHITE BLOOD COUNT 10.1 10^3/uL (4.0-10.0)
[2023-10-11 11:50] LABS: ALBUMIN 3.7 G/DL (3.2-5.2); ALKALINE PHOSPHATASE 153 U/L (46-116); ALT/SGPT 25 U/L (7.0-40); AST/SGOT 13 U/L (<34); BILIRUBIN,TOTAL 0.6 MG/DL (0.3-1.2); BLOOD UREA NITROGEN 18 MG/DL (9-23); CALCIUM LEVEL 8.6 MG/DL (8.3-10.6); CARBON DIOXIDE LEVEL 31 MMOL/L (20-31); CHLORIDE LEVEL 104 MMOL/L (98-107); CREATININE FOR GFR 0.73 MG/DL (0.70-1.30); GLOMERULAR FILTRATION RATE > 60.0 (>42); GLUCOSE, FASTING 151 MG/DL (74-106); POTASSIUM SERUM 4.7 MMOL/L (3.5-5.1); SODIUM LEVEL 141 MMOL/L (136-145); TOTAL PROTEIN 6.8 G/DL (5.7-8.2)
[2023-10-11 12:10] LABS: CA19-9 TUMOR MARKER,CARBOHYDRA < 1.2 U/ML (<35.0)
[2023-10-23 14:38] VITALS: BP 141/71; O2SAT 99
[2023-10-23 14:50] LABS: BASO # 0.1 10^3/uL (0.0-0.2); BASO % 0.6 % (0.0-1.0); EOS # 0.4 10^3/uL (0.0-0.5); HEMATOCRIT 38.5 % (42.0-52.0); HEMOGLOBIN 12.7 g/dl (13.5-17.5); LYMPH # 1.9 10^3/uL (1.5-5.0); LYMPH % 22.7 % (24.0-44.0); MEAN CORPUSCULAR HEMOGLOBIN 28.3 pg (27.0-33.0); MEAN CORPUSCULAR VOLUME 85.9 fl (80.0-96.0); MONO # 0.6 10^3/uL (0.0-0.8); MONO % 6.7 % (2.0-8.0); NEUTROPHILS # 5.4 10^3/uL (1.5-8.5); NEUTROPHILS % 64.8 % (36.0-66.0); PLATELET COUNT, AUTOMATED 191 10^3/uL (150-450); RED BLOOD COUNT 4.48 10^6/uL (4.30-6.10); WHITE BLOOD COUNT 8.4 10^3/uL (4.0-10.0)
[2023-10-23 15:14] LABS: ALBUMIN 3.3 G/DL (3.2-5.2); ALKALINE PHOSPHATASE 127 U/L (46-116); ALT/SGPT 21 U/L (7.0-40); AST/SGOT 15 U/L (<34); BILIRUBIN,TOTAL 0.3 MG/DL (0.3-1.2); BLOOD UREA NITROGEN 14 MG/DL (9-23); CALCIUM LEVEL 8.6 MG/DL (8.3-10.6); CARBON DIOXIDE LEVEL 30 MMOL/L (20-31); CHLORIDE LEVEL 108 MMOL/L (98-107); CREATININE FOR GFR 0.63 MG/DL (0.70-1.30); GLOMERULAR FILTRATION RATE > 60.0 (>42); GLUCOSE, FASTING 225 MG/DL (74-106); POTASSIUM SERUM 4.1 MMOL/L (3.5-5.1); SODIUM LEVEL 141 MMOL/L (136-145); TOTAL PROTEIN 6.2 G/DL (5.7-8.2)
[2023-10-23 15:23] LABS: IRON (FE) 22 UG/DL (65-175); TOTAL IRON BINDING CAPACITY 274 UG/DL (250-425)
[2023-10-23 15:26] LABS: FERRITIN 114.2 NG/ML (10.5-307.3); VITAMIN B12 LEVEL 421 PG/ML (211-911)
[2023-10-24 09:28] VITALS: BP 130/62; O2SAT 99
[2023-10-24] MEDS: dexAMETHasone 4 MG TAB PO SCH (09:39)
[2023-10-24] MEDS: PROCHLORPERAZINE 5MG TAB PO SCH (09:40)
[2023-10-24] MEDS: PACLITAXEL PROTEIN BOUND IV SCH (10:52)
[2023-10-24] MEDS: GEMCITABINE IV SCH (11:51)
[2023-10-24] MEDS: NS IV SCH (11:51)
[2023-10-31 09:26] VITALS: BP 112/62; O2SAT 100
[2023-10-31 09:34] LABS: BASO # 0.1 10^3/uL (0.0-0.2); BASO % 1.1 % (0.0-1.0); EOS # 0.1 10^3/uL (0.0-0.5); HEMATOCRIT 40.7 % (42.0-52.0); HEMOGLOBIN 13.3 g/dl (13.5-17.5); LYMPH # 1.6 10^3/uL (1.5-5.0); LYMPH % 35.4 % (24.0-44.0); MEAN CORPUSCULAR HEMOGLOBIN 28.3 pg (27.0-33.0); MEAN CORPUSCULAR HGB CONC 32.7 g/dl (32.0-36.5); MEAN CORPUSCULAR VOLUME 86.6 fl (80.0-96.0); MONO # 0.3 10^3/uL (0.0-0.8); MONO % 5.7 % (2.0-8.0); NEUTROPHILS # 2.5 10^3/uL (1.5-8.5); NEUTROPHILS % 55.6 % (36.0-66.0); PLATELET COUNT, AUTOMATED 149 10^3/uL (150-450); WHITE BLOOD COUNT 4.6 10^3/uL (4.0-10.0)
[2023-10-31 09:57] LABS: ALBUMIN 3.5 G/DL (3.2-5.2); ALKALINE PHOSPHATASE 118 U/L (46-116); ALT/SGPT 28 U/L (7.0-40); AST/SGOT 18 U/L (<34); BILIRUBIN,TOTAL 0.8 MG/DL (0.3-1.2); BLOOD UREA NITROGEN 22 MG/DL (9-23); CALCIUM LEVEL 9.2 MG/DL (8.3-10.6); CARBON DIOXIDE LEVEL 30 MMOL/L (20-31); CHLORIDE LEVEL 104 MMOL/L (98-107); CREATININE FOR GFR 0.73 MG/DL (0.70-1.30); GLOMERULAR FILTRATION RATE > 60.0 (>42); GLUCOSE, FASTING 140 MG/DL (74-106); POTASSIUM SERUM 4.4 MMOL/L (3.5-5.1); SODIUM LEVEL 139 MMOL/L (136-145); TOTAL PROTEIN 6.8 G/DL (5.7-8.2)
[2023-10-31] MEDS: PROCHLORPERAZINE 5MG TAB PO SCH (10:11)
[2023-10-31] MEDS: dexAMETHasone 4 MG TAB PO SCH (10:12)
[2023-10-31] MEDS: PACLITAXEL PROTEIN BOUND IV SCH (11:03)
[2023-10-31] MEDS: GEMCITABINE IV SCH (12:04)
[2023-10-31] MEDS: NS IV SCH (12:04)
[2023-11-07 09:25] LABS: BASO % 0.4 % (0.0-1.0); EOS % 1.6 % (0.0-3.0); HEMATOCRIT 36.4 % (42.0-52.0); LYMPH # 1.3 10^3/uL (1.5-5.0); LYMPH % 51.8 % (24.0-44.0); MEAN CORPUSCULAR HEMOGLOBIN 28.6 pg (27.0-33.0); MEAN CORPUSCULAR VOLUME 86.9 fl (80.0-96.0); MONO # 0.1 10^3/uL (0.0-0.8); MONO % 4.5 % (2.0-8.0); NEUTROPHILS % 40.5 % (36.0-66.0); PLATELET COUNT, AUTOMATED 103 10^3/uL (150-450); RED BLOOD COUNT 4.19 10^6/uL (4.30-6.10); WHITE BLOOD COUNT 2.5 10^3/uL (4.0-10.0)
[2023-11-07 09:51] LABS: ALBUMIN 3.2 G/DL (3.2-5.2); ALKALINE PHOSPHATASE 109 U/L (46-116); ALT/SGPT 32 U/L (7.0-40); AST/SGOT 18 U/L (<34); BILIRUBIN,TOTAL 0.5 MG/DL (0.3-1.2); BLOOD UREA NITROGEN 15 MG/DL (9-23); CALCIUM LEVEL 8.4 MG/DL (8.3-10.6); CARBON DIOXIDE LEVEL 28 MMOL/L (20-31); CHLORIDE LEVEL 106 MMOL/L (98-107); CREATININE FOR GFR 0.75 MG/DL (0.70-1.30); GLOMERULAR FILTRATION RATE > 60.0 (>42); GLUCOSE, FASTING 169 MG/DL (74-106); POTASSIUM SERUM 4.1 MMOL/L (3.5-5.1); SODIUM LEVEL 139 MMOL/L (136-145); TOTAL PROTEIN 6.2 G/DL (5.7-8.2)
[2023-11-13 15:49] LABS: BASO # 0.1 10^3/uL (0.0-0.2); EOS # 0.2 10^3/uL (0.0-0.5); EOS % 3.4 % (0.0-3.0); HEMOGLOBIN 11.4 g/dl (13.5-17.5); LYMPH # 2.1 10^3/uL (1.5-5.0); LYMPH % 40.8 % (24.0-44.0); MEAN CORPUSCULAR HEMOGLOBIN 28.8 pg (27.0-33.0); MEAN CORPUSCULAR HGB CONC 32.6 g/dl (32.0-36.5); MEAN CORPUSCULAR VOLUME 88.4 fl (80.0-96.0); MONO # 0.7 10^3/uL (0.0-0.8); MONO % 14.1 % (2.0-8.0); NEUTROPHILS % 39.5 % (36.0-66.0); PLATELET COUNT, AUTOMATED 281 10^3/uL (150-450); RED BLOOD COUNT 3.96 10^6/uL (4.30-6.10); WHITE BLOOD COUNT 5.1 10^3/uL (4.0-10.0)
[2023-11-13 16:15] LABS: ALBUMIN 2.9 G/DL (3.2-5.2); ALKALINE PHOSPHATASE 110 U/L (46-116); ALT/SGPT 35 U/L (7.0-40); AST/SGOT 17 U/L (<34); BILIRUBIN,TOTAL 0.3 MG/DL (0.3-1.2); BLOOD UREA NITROGEN 13 MG/DL (9-23); CALCIUM LEVEL 8.7 MG/DL (8.3-10.6); CARBON DIOXIDE LEVEL 31 MMOL/L (20-31); CHLORIDE LEVEL 108 MMOL/L (98-107); CREATININE FOR GFR 0.67 MG/DL (0.70-1.30); GLOMERULAR FILTRATION RATE > 60.0 (>42); GLUCOSE, FASTING 144 MG/DL (74-106); POTASSIUM SERUM 4.5 MMOL/L (3.5-5.1); SODIUM LEVEL 142 MMOL/L (136-145); TOTAL PROTEIN 5.9 G/DL (5.7-8.2)
[2023-11-13 16:35] LABS: CA19-9 TUMOR MARKER,CARBOHYDRA 1.8 U/ML (<35.0)
[2023-11-14 09:15] VITALS: BP 122/64; O2SAT 99
[2023-11-14] MEDS: PROCHLORPERAZINE 5MG TAB PO SCH (09:38)
[2023-11-14] MEDS: dexAMETHasone 4 MG TAB PO SCH (09:38)
[2023-11-14] MEDS: PACLITAXEL PROTEIN BOUND IV SCH (10:27)
[2023-11-14] MEDS: NS IV SCH (11:23)
[2023-11-14] MEDS: GEMCITABINE IV SCH (11:23)
[2023-11-28 14:07] LABS: BASO # 0.1 10^3/uL (0.0-0.2); BASO % 0.7 % (0.0-1.0); EOS # 0.2 10^3/uL (0.0-0.5); EOS % 2.3 % (0.0-3.0); HEMATOCRIT 38.1 % (42.0-52.0); HEMOGLOBIN 12.1 g/dl (13.5-17.5); LYMPH # 1.7 10^3/uL (1.5-5.0); LYMPH % 19.3 % (24.0-44.0); MEAN CORPUSCULAR HEMOGLOBIN 28.3 pg (27.0-33.0); MEAN CORPUSCULAR HGB CONC 31.8 g/dl (32.0-36.5); MONO % 10.9 % (2.0-8.0); NEUTROPHILS % 66.4 % (36.0-66.0); PLATELET COUNT, AUTOMATED 142 10^3/uL (150-450); RED BLOOD COUNT 4.28 10^6/uL (4.30-6.10)
[2023-11-28 14:36] LABS: ALKALINE PHOSPHATASE 115 U/L (46-116); ALT/SGPT 37 U/L (7.0-40); AST/SGOT 13 U/L (<34); BILIRUBIN,TOTAL 0.6 MG/DL (0.3-1.2); BLOOD UREA NITROGEN 15 MG/DL (9-23); CALCIUM LEVEL 8.8 MG/DL (8.3-10.6); CARBON DIOXIDE LEVEL 29 MMOL/L (20-31); CHLORIDE LEVEL 106 MMOL/L (98-107); CREATININE FOR GFR 0.69 MG/DL (0.70-1.30); GLOMERULAR FILTRATION RATE > 60.0 (>42); GLUCOSE, FASTING 126 MG/DL (74-106); POTASSIUM SERUM 4.2 MMOL/L (3.5-5.1); SODIUM LEVEL 141 MMOL/L (136-145); TOTAL PROTEIN 6.1 G/DL (5.7-8.2)
[2023-11-29 07:59] VITALS: BP 92/56; O2SAT 100
[2023-11-29] MEDS: dexAMETHasone 4 MG TAB PO SCH (08:49)
[2023-11-29] MEDS: PROCHLORPERAZINE 5MG TAB PO SCH (08:49)
[2023-11-29] MEDS: PACLITAXEL PROTEIN BOUND IV SCH (09:42)
[2023-11-29] MEDS: GEMCITABINE IV SCH (10:47)
[2023-11-29] MEDS: NS IV SCH (10:47)
[2023-12-05 13:59] LABS: BASO # 0.1 10^3/uL (0.0-0.2); BASO % 1.5 % (0.0-1.0); EOS # 0.2 10^3/uL (0.0-0.5); EOS % 4.4 % (0.0-3.0); HEMATOCRIT 33.8 % (42.0-52.0); LYMPH # 1.7 10^3/uL (1.5-5.0); LYMPH % 34.7 % (24.0-44.0); MEAN CORPUSCULAR HEMOGLOBIN 28.6 pg (27.0-33.0); MEAN CORPUSCULAR HGB CONC 32.5 g/dl (32.0-36.5); MONO # 0.4 10^3/uL (0.0-0.8); MONO % 8.8 % (2.0-8.0); NEUTROPHILS # 2.4 10^3/uL (1.5-8.5); NEUTROPHILS % 49.6 % (36.0-66.0); PLATELET COUNT, AUTOMATED 235 10^3/uL (150-450); RED BLOOD COUNT 3.84 10^6/uL (4.30-6.10); WHITE BLOOD COUNT 4.8 10^3/uL (4.0-10.0)
[2023-12-05 14:28] LABS: ALKALINE PHOSPHATASE 113 U/L (46-116); ALT/SGPT 58 U/L (7.0-40); AST/SGOT 36 U/L (<34); BILIRUBIN,TOTAL 0.7 MG/DL (0.3-1.2); BLOOD UREA NITROGEN 19 MG/DL (9-23); CALCIUM LEVEL 8.7 MG/DL (8.3-10.6); CARBON DIOXIDE LEVEL 27 MMOL/L (20-31); CHLORIDE LEVEL 106 MMOL/L (98-107); CREATININE FOR GFR 0.78 MG/DL (0.70-1.30); GLOMERULAR FILTRATION RATE > 60.0 (>42); GLUCOSE, FASTING 141 MG/DL (74-106); POTASSIUM SERUM 4.4 MMOL/L (3.5-5.1); SODIUM LEVEL 140 MMOL/L (136-145); TOTAL PROTEIN 6.5 G/DL (5.7-8.2)
[2023-12-05 14:47] LABS: CA19-9 TUMOR MARKER,CARBOHYDRA < 1.2 U/ML (<35.0)
[2023-12-06 09:30] VITALS: BP 123/64; O2SAT 100
[2023-12-06 09:34] VITALS: BP 119/63; O2SAT 100
[2023-12-06] MEDS: dexAMETHasone 4 MG TAB PO SCH (10:15)
[2023-12-06] MEDS: PROCHLORPERAZINE 5MG TAB PO SCH (10:16)
[2023-12-06] MEDS: PACLITAXEL PROTEIN BOUND IV SCH (10:50)
[2023-12-06] MEDS: NS IV SCH (11:41)
[2023-12-06] MEDS: GEMCITABINE IV SCH (11:41)
[2023-12-12 14:25] LABS: BASO % 1.6 % (0.0-1.0); EOS # 0.1 10^3/uL (0.0-0.5); EOS % 4.8 % (0.0-3.0); HEMATOCRIT 35.7 % (42.0-52.0); HEMOGLOBIN 11.7 g/dl (13.5-17.5); LYMPH # 1.3 10^3/uL (1.5-5.0); LYMPH % 53.2 % (24.0-44.0); MEAN CORPUSCULAR HEMOGLOBIN 28.7 pg (27.0-33.0); MEAN CORPUSCULAR HGB CONC 32.8 g/dl (32.0-36.5); MEAN CORPUSCULAR VOLUME 87.5 fl (80.0-96.0); MONO # 0.2 10^3/uL (0.0-0.8); MONO % 7.9 % (2.0-8.0); NEUTROPHILS % 30.9 % (36.0-66.0); PLATELET COUNT, AUTOMATED 141 10^3/uL (150-450); RED BLOOD COUNT 4.08 10^6/uL (4.30-6.10); WHITE BLOOD COUNT 2.5 10^3/uL (4.0-10.0)
[2023-12-12 14:33] LABS: ALBUMIN 3.1 G/DL (3.2-5.2); ALKALINE PHOSPHATASE 122 U/L (46-116); ALT/SGPT 65 U/L (7.0-40); AST/SGOT 39 U/L (<34); BILIRUBIN,TOTAL 0.6 MG/DL (0.3-1.2); BLOOD UREA NITROGEN 15 MG/DL (9-23); CALCIUM LEVEL 9.3 MG/DL (8.3-10.6); CARBON DIOXIDE LEVEL 28 MMOL/L (20-31); CHLORIDE LEVEL 105 MMOL/L (98-107); CREATININE FOR GFR 0.65 MG/DL (0.70-1.30); GLOMERULAR FILTRATION RATE > 60.0 (>42); GLUCOSE, FASTING 95 MG/DL (74-106); POTASSIUM SERUM 4.2 MMOL/L (3.5-5.1); SODIUM LEVEL 138 MMOL/L (136-145); TOTAL PROTEIN 6.4 G/DL (5.7-8.2)
[2023-12-12 14:54] LABS: NEUTROPHILS # 0.8 10^3/uL (1.5-8.5)
[2023-12-13 08:37] VITALS: BP 98/57; O2SAT 100
[2023-12-13] MEDS: ONLY SC ONE (09:53)
[2023-12-13] MEDS: FILGRASTIM SNDZ SC ONE (09:53)
[2023-12-14] MEDS: FILGRASTIM SNDZ SC SCH (13:23)
[2023-12-14] MEDS: ONLY SC SCH (13:23)
[2023-12-15] MEDS: FILGRASTIM SNDZ SC SCH (13:02)
[2023-12-15] MEDS: ONLY SC SCH (13:02)
[2023-12-18 07:41] LABS: BASO # 0.1 10^3/uL (0.0-0.2); BASO % 0.4 % (0.0-1.0); EOS # 0.5 10^3/uL (0.0-0.5); EOS % 4.2 % (0.0-3.0); HEMATOCRIT 36.2 % (42.0-52.0); HEMOGLOBIN 11.5 g/dl (13.5-17.5); LYMPH # 1.9 10^3/uL (1.5-5.0); LYMPH % 16.7 % (24.0-44.0); MEAN CORPUSCULAR HGB CONC 31.8 g/dl (32.0-36.5); MEAN CORPUSCULAR VOLUME 88.3 fl (80.0-96.0); MONO # 1.4 10^3/uL (0.0-0.8); MONO % 12.4 % (2.0-8.0); NEUTROPHILS # 5.7 10^3/uL (1.5-8.5); NEUTROPHILS % 50.7 % (36.0-66.0); PLATELET COUNT, AUTOMATED 224 10^3/uL (150-450); WHITE BLOOD COUNT 11.3 10^3/uL (4.0-10.0)
[2023-12-18 07:59] VITALS: BP 104/56; O2SAT 95
[2023-12-18 08:09] LABS: ALBUMIN 3.2 G/DL (3.2-5.2); ALKALINE PHOSPHATASE 281 U/L (46-116); ALT/SGPT 170 U/L (7.0-40); AST/SGOT 129 U/L (<34); BILIRUBIN,TOTAL 0.5 MG/DL (0.3-1.2); BLOOD UREA NITROGEN 13 MG/DL (9-23); CALCIUM LEVEL 8.6 MG/DL (8.3-10.6); CARBON DIOXIDE LEVEL 27 MMOL/L (20-31); CHLORIDE LEVEL 107 MMOL/L (98-107); CREATININE FOR GFR 0.74 MG/DL (0.70-1.30); GLOMERULAR FILTRATION RATE > 60.0 (>42); GLUCOSE, FASTING 146 MG/DL (74-106); POTASSIUM SERUM 3.8 MMOL/L (3.5-5.1); SODIUM LEVEL 140 MMOL/L (136-145); TOTAL PROTEIN 6.5 G/DL (5.7-8.2)
[2023-12-18 08:49] LABS: LIPASE 71 U/L (12-53)
[2023-12-18] MEDS: dexAMETHasone 4 MG TAB PO SCH (10:10)
[2023-12-18] MEDS: PROCHLORPERAZINE 5MG TAB PO SCH (10:11)
[2023-12-18] MEDS: PACLITAXEL PROTEIN BOUND IV SCH (11:39)
[2023-12-18] MEDS: NS IV SCH (12:16)
[2023-12-18] MEDS: GEMCITABINE IV SCH (12:16)
[2024-01-01 13:54] LABS: BASO # 0.1 10^3/uL (0.0-0.2); BASO % 1.5 % (0.0-1.0); EOS # 0.5 10^3/uL (0.0-0.5); EOS % 6.1 % (0.0-3.0); HEMATOCRIT 33.7 % (42.0-52.0); HEMOGLOBIN 10.7 g/dl (13.5-17.5); LYMPH % 26.8 % (24.0-44.0); MEAN CORPUSCULAR HEMOGLOBIN 28.4 pg (27.0-33.0); MEAN CORPUSCULAR HGB CONC 31.8 g/dl (32.0-36.5); MEAN CORPUSCULAR VOLUME 89.4 fl (80.0-96.0); MONO % 13.2 % (2.0-8.0); NEUTROPHILS # 3.8 10^3/uL (1.5-8.5); NEUTROPHILS % 52.1 % (36.0-66.0); PLATELET COUNT, AUTOMATED 227 10^3/uL (150-450); RED BLOOD COUNT 3.77 10^6/uL (4.30-6.10); WHITE BLOOD COUNT 7.4 10^3/uL (4.0-10.0)
[2024-01-01 14:32] LABS: ALBUMIN 3.2 G/DL (3.2-5.2); ALKALINE PHOSPHATASE 146 U/L (46-116); ALT/SGPT 29 U/L (7.0-40); AST/SGOT 24 U/L (<34); BILIRUBIN,TOTAL 0.5 MG/DL (0.3-1.2); BLOOD UREA NITROGEN 22 MG/DL (9-23); CALCIUM LEVEL 8.8 MG/DL (8.3-10.6); CARBON DIOXIDE LEVEL 27 MMOL/L (20-31); CHLORIDE LEVEL 109 MMOL/L (98-107); CREATININE FOR GFR 0.79 MG/DL (0.70-1.30); GLOMERULAR FILTRATION RATE > 60.0 (>42); GLUCOSE, FASTING 130 MG/DL (74-106); POTASSIUM SERUM 4.4 MMOL/L (3.5-5.1); SODIUM LEVEL 142 MMOL/L (136-145); TOTAL PROTEIN 6.1 G/DL (5.7-8.2)
[2024-01-02 08:22] VITALS: BP 131/68; O2SAT 100
[2024-01-02] MEDS: dexAMETHasone 4 MG TAB PO SCH (09:14)
[2024-01-02] MEDS: PROCHLORPERAZINE 5MG TAB PO SCH (09:14)
[2024-01-02] MEDS: PACLITAXEL PROTEIN BOUND IV SCH (10:17)
[2024-01-02] MEDS: GEMCITABINE IV SCH (11:04)
[2024-01-02] MEDS: NS IV SCH (11:04)
[2024-01-08 15:05] LABS: BASO # 0.1 10^3/uL (0.0-0.2); BASO % 1.4 % (0.0-1.0); EOS # 0.2 10^3/uL (0.0-0.5); EOS % 4.3 % (0.0-3.0); HEMATOCRIT 31.8 % (42.0-52.0); HEMOGLOBIN 10.2 g/dl (13.5-17.5); LYMPH # 1.5 10^3/uL (1.5-5.0); LYMPH % 40.9 % (24.0-44.0); MEAN CORPUSCULAR HEMOGLOBIN 28.7 pg (27.0-33.0); MEAN CORPUSCULAR HGB CONC 32.1 g/dl (32.0-36.5); MEAN CORPUSCULAR VOLUME 89.3 fl (80.0-96.0); MONO # 0.4 10^3/uL (0.0-0.8); NEUTROPHILS # 1.6 10^3/uL (1.5-8.5); NEUTROPHILS % 42.9 % (36.0-66.0); PLATELET COUNT, AUTOMATED 247 10^3/uL (150-450); RED BLOOD COUNT 3.56 10^6/uL (4.30-6.10); WHITE BLOOD COUNT 3.7 10^3/uL (4.0-10.0)
[2024-01-08 15:25] VITALS: BP 126/72
[2024-01-08 15:39] LABS: ALBUMIN 3.2 G/DL (3.2-5.2); ALKALINE PHOSPHATASE 117 U/L (46-116); ALT/SGPT 26 U/L (7.0-40); AST/SGOT 14 U/L (<34); BILIRUBIN,TOTAL 0.7 MG/DL (0.3-1.2); BLOOD UREA NITROGEN 15 MG/DL (9-23); CALCIUM LEVEL 8.7 MG/DL (8.3-10.6); CARBON DIOXIDE LEVEL 26 MMOL/L (20-31); CHLORIDE LEVEL 106 MMOL/L (98-107); CREATININE FOR GFR 0.59 MG/DL (0.70-1.30); GLOMERULAR FILTRATION RATE > 60.0 (>42); GLUCOSE, FASTING 120 MG/DL (74-106); POTASSIUM SERUM 3.8 MMOL/L (3.5-5.1); SODIUM LEVEL 138 MMOL/L (136-145); TOTAL PROTEIN 6.5 G/DL (5.7-8.2)
[2024-01-09 09:40] VITALS: BP 106/67; O2SAT 100
[2024-01-09] MEDS: PROCHLORPERAZINE 5MG TAB PO SCH (09:53)
[2024-01-09] MEDS: dexAMETHasone 4 MG TAB PO SCH (09:53)
[2024-01-09] MEDS: PACLITAXEL PROTEIN BOUND IV SCH (11:09)
[2024-01-09] MEDS: NS IV SCH (11:45)
[2024-01-09] MEDS: GEMCITABINE IV SCH (11:45)
[2024-01-10] MEDS: ONLY SC SCH (14:11)
[2024-01-10] MEDS: FILGRASTIM SNDZ SC SCH (14:11)
[2024-01-11] MEDS: FILGRASTIM SNDZ SC SCH (13:40)
[2024-01-11] MEDS: ONLY SC SCH (13:40)
[2024-01-12] MEDS: FILGRASTIM SNDZ SC SCH (13:34)
[2024-01-12] MEDS: ONLY SC SCH (13:34)
[2024-01-15 14:15] LABS: BASO # 0.1 10^3/uL (0.0-0.2); EOS # 0.1 10^3/uL (0.0-0.5); EOS % 1.6 % (0.0-3.0); HEMATOCRIT 30.7 % (42.0-52.0); HEMOGLOBIN 9.7 g/dl (13.5-17.5); LYMPH # 1.5 10^3/uL (1.5-5.0); LYMPH % 23.6 % (24.0-44.0); MEAN CORPUSCULAR HGB CONC 31.6 g/dl (32.0-36.5); MEAN CORPUSCULAR VOLUME 88.5 fl (80.0-96.0); MONO # 0.8 10^3/uL (0.0-0.8); MONO % 12.8 % (2.0-8.0); NEUTROPHILS # 3.4 10^3/uL (1.5-8.5); NEUTROPHILS % 53.7 % (36.0-66.0); PLATELET COUNT, AUTOMATED 102 10^3/uL (150-450); RED BLOOD COUNT 3.47 10^6/uL (4.30-6.10); WHITE BLOOD COUNT 6.3 10^3/uL (4.0-10.0)
[2024-01-15 14:52] LABS: ALBUMIN 2.8 G/DL (3.2-5.2); ALKALINE PHOSPHATASE 141 U/L (46-116); ALT/SGPT 40 U/L (7.0-40); AST/SGOT 25 U/L (<34); BILIRUBIN,TOTAL 0.5 MG/DL (0.3-1.2); BLOOD UREA NITROGEN 15 MG/DL (9-23); CALCIUM LEVEL 8.5 MG/DL (8.3-10.6); CARBON DIOXIDE LEVEL 26 MMOL/L (20-31); CHLORIDE LEVEL 108 MMOL/L (98-107); CREATININE FOR GFR 0.57 MG/DL (0.70-1.30); GLOMERULAR FILTRATION RATE > 60.0 (>42); GLUCOSE, FASTING 127 MG/DL (74-106); POTASSIUM SERUM 4.1 MMOL/L (3.5-5.1); SODIUM LEVEL 138 MMOL/L (136-145); TOTAL PROTEIN 5.8 G/DL (5.7-8.2)
[2024-01-16 09:50] VITALS: BP 98/60; O2SAT 100
[2024-01-16] MEDS: dexAMETHasone 4 MG TAB PO SCH (10:07)
[2024-01-16] MEDS: PROCHLORPERAZINE 5MG TAB PO SCH (10:07)
[2024-01-16] MEDS: PACLITAXEL PROTEIN BOUND IV SCH (11:26)
[2024-01-16] MEDS: GEMCITABINE IV SCH (12:13)
[2024-01-16] MEDS: NS IV SCH (12:13)
[2024-01-17] MEDS: [UNRECOGNIZED DRUG - OTHER] SC ONE (14:41)
[2024-01-29 14:20] LABS: BASO # 0.1 10^3/uL (0.0-0.2); BASO % 1.3 % (0.0-1.0); EOS # 0.3 10^3/uL (0.0-0.5); EOS % 4.2 % (0.0-3.0); HEMATOCRIT 30.2 % (42.0-52.0); HEMOGLOBIN 9.5 g/dl (13.5-17.5); LYMPH # 1.6 10^3/uL (1.5-5.0); LYMPH % 21.3 % (24.0-44.0); MEAN CORPUSCULAR HEMOGLOBIN 28.7 pg (27.0-33.0); MEAN CORPUSCULAR HGB CONC 31.5 g/dl (32.0-36.5); MEAN CORPUSCULAR VOLUME 91.2 fl (80.0-96.0); MONO % 12.4 % (2.0-8.0); NEUTROPHILS # 4.6 10^3/uL (1.5-8.5); PLATELET COUNT, AUTOMATED 200 10^3/uL (150-450); RED BLOOD COUNT 3.31 10^6/uL (4.30-6.10); WHITE BLOOD COUNT 7.7 10^3/uL (4.0-10.0)
[2024-01-29 14:55] LABS: ALBUMIN 2.9 G/DL (3.2-5.2); ALKALINE PHOSPHATASE 145 U/L (46-116); ALT/SGPT 40 U/L (7.0-40); AST/SGOT 30 U/L (<34); BILIRUBIN,TOTAL 0.5 MG/DL (0.3-1.2); BLOOD UREA NITROGEN 10 MG/DL (9-23); CALCIUM LEVEL 8.3 MG/DL (8.3-10.6); CARBON DIOXIDE LEVEL 27 MMOL/L (20-31); CHLORIDE LEVEL 106 MMOL/L (98-107); CREATININE FOR GFR 0.61 MG/DL (0.70-1.30); GLOMERULAR FILTRATION RATE > 60.0 (>42); GLUCOSE, FASTING 144 MG/DL (74-106); POTASSIUM SERUM 4.9 MMOL/L (3.5-5.1); SODIUM LEVEL 137 MMOL/L (136-145); TOTAL PROTEIN 5.6 G/DL (5.7-8.2)
[2024-01-30 09:13] VITALS: BP 99/55; O2SAT 100
[2024-01-30] MEDS: dexAMETHasone 4 MG TAB PO SCH (10:15)
[2024-01-30] MEDS: PROCHLORPERAZINE 5MG TAB PO SCH (10:15)
[2024-01-30] MEDS: PACLITAXEL PROTEIN BOUND IV SCH (11:12)
[2024-01-30] MEDS: GEMCITABINE IV SCH (11:53)
[2024-01-30] MEDS: NS IV SCH (11:53)
[2024-02-05 14:39] LABS: BASO # 0.1 10^3/uL (0.0-0.2); EOS # 0.1 10^3/uL (0.0-0.5); HEMATOCRIT 29.7 % (42.0-52.0); HEMOGLOBIN 9.2 g/dl (13.5-17.5); LYMPH # 0.9 10^3/uL (1.5-5.0); MEAN CORPUSCULAR VOLUME 90.5 fl (80.0-96.0); MONO # 0.2 10^3/uL (0.0-0.8); NEUTROPHILS % 36.1 % (36.0-66.0); PLATELET COUNT, AUTOMATED 244 10^3/uL (150-450); RED BLOOD COUNT 3.28 10^6/uL (4.30-6.10); WHITE BLOOD COUNT 2.2 10^3/uL (4.0-10.0)
[2024-02-05 14:44] LABS: NEUTROPHILS # 0.8 10^3/uL (1.5-8.5)
[2024-02-05 15:05] LABS: ALBUMIN 2.8 G/DL (3.2-5.2); ALKALINE PHOSPHATASE 140 U/L (46-116); ALT/SGPT 89 U/L (7.0-40); AST/SGOT 54 U/L (<34); BILIRUBIN,TOTAL 0.5 MG/DL (0.3-1.2); BLOOD UREA NITROGEN 19 MG/DL (9-23); CALCIUM LEVEL 8.2 MG/DL (8.3-10.6); CARBON DIOXIDE LEVEL 27 MMOL/L (20-31); CHLORIDE LEVEL 106 MMOL/L (98-107); CREATININE FOR GFR 0.57 MG/DL (0.70-1.30); GLOMERULAR FILTRATION RATE > 60.0 (>42); GLUCOSE, FASTING 84 MG/DL (74-106); POTASSIUM SERUM 4.1 MMOL/L (3.5-5.1); SODIUM LEVEL 136 MMOL/L (136-145); TOTAL PROTEIN 5.8 G/DL (5.7-8.2)
[2024-02-05 15:22] LABS: CA19-9 TUMOR MARKER,CARBOHYDRA < 1.2 U/ML (<35.0)
[2024-02-06] MEDS: FILGRASTIM SNDZ SC SCH (10:06)
[2024-02-06] MEDS: ONLY SC SCH (10:06)
[2024-02-07] MEDS: FILGRASTIM SNDZ SC SCH (10:10)
[2024-02-07] MEDS: ONLY SC SCH (10:10)
[2024-02-08] MEDS: ONLY SC SCH (10:13)
[2024-02-08] MEDS: FILGRASTIM SNDZ SC SCH (10:13)
[2024-02-09 10:00] LABS: BASO # 0.2 10^3/uL (0.0-0.2); BASO % 0.5 % (0.0-1.0); EOS # 0.5 10^3/uL (0.0-0.5); EOS % 1.5 % (0.0-3.0); HEMATOCRIT 31.3 % (42.0-52.0); HEMOGLOBIN 9.7 g/dl (13.5-17.5); LYMPH # 2.4 10^3/uL (1.5-5.0); LYMPH % 7.6 % (24.0-44.0); MEAN CORPUSCULAR HEMOGLOBIN 28.4 pg (27.0-33.0); MEAN CORPUSCULAR VOLUME 91.8 fl (80.0-96.0); MONO # 2.1 10^3/uL (0.0-0.8); MONO % 6.5 % (2.0-8.0); NEUTROPHILS # 25.8 10^3/uL (1.5-8.5); NEUTROPHILS % 81.3 % (36.0-66.0); PLATELET COUNT, AUTOMATED 186 10^3/uL (150-450); RED BLOOD COUNT 3.41 10^6/uL (4.30-6.10)
[2024-02-09 10:13] LABS: WHITE BLOOD COUNT 31.8 10^3/uL (4.0-10.0)
[2024-02-09 10:36] LABS: ALBUMIN 2.8 G/DL (3.2-5.2); ALKALINE PHOSPHATASE 186 U/L (46-116); ALT/SGPT 47 U/L (7.0-40); AST/SGOT 19 U/L (<34); BILIRUBIN,TOTAL 0.4 MG/DL (0.3-1.2); BLOOD UREA NITROGEN 9 MG/DL (9-23); CALCIUM LEVEL 8.8 MG/DL (8.3-10.6); CARBON DIOXIDE LEVEL 28 MMOL/L (20-31); CHLORIDE LEVEL 107 MMOL/L (98-107); CREATININE FOR GFR 0.61 MG/DL (0.70-1.30); GLOMERULAR FILTRATION RATE > 60.0 (>42); GLUCOSE, FASTING 139 MG/DL (74-106); POTASSIUM SERUM 4.1 MMOL/L (3.5-5.1); SODIUM LEVEL 142 MMOL/L (136-145); TOTAL PROTEIN 5.7 G/DL (5.7-8.2)
[2024-02-09 11:12] VITALS: BP 110/62; O2SAT 100
[2024-02-09] MEDS: dexAMETHasone 4 MG TAB PO SCH (11:51)
[2024-02-09] MEDS: PROCHLORPERAZINE 5MG TAB PO SCH (11:51)
[2024-02-09] MEDS: PACLITAXEL PROTEIN BOUND IV SCH (13:05)
[2024-02-09] MEDS: NS IV SCH (13:53)
[2024-02-09] MEDS: GEMCITABINE IV SCH (13:53)
[2024-02-12 10:22] VITALS: BP 104/61; O2SAT 100
[2024-02-15 09:19] LABS: BASO % 1.3 % (0.0-1.0); EOS # 0.1 10^3/uL (0.0-0.5); EOS % 5.1 % (0.0-3.0); HEMATOCRIT 27.8 % (42.0-52.0); HEMOGLOBIN 8.6 g/dl (13.5-17.5); LYMPH # 0.7 10^3/uL (1.5-5.0); LYMPH % 30.6 % (24.0-44.0); MEAN CORPUSCULAR HEMOGLOBIN 27.9 pg (27.0-33.0); MEAN CORPUSCULAR HGB CONC 30.9 g/dl (32.0-36.5); MEAN CORPUSCULAR VOLUME 90.3 fl (80.0-96.0); MONO # 0.2 10^3/uL (0.0-0.8); MONO % 9.8 % (2.0-8.0); NEUTROPHILS # 1.2 10^3/uL (1.5-8.5); NEUTROPHILS % 52.3 % (36.0-66.0); PLATELET COUNT, AUTOMATED 143 10^3/uL (150-450); RED BLOOD COUNT 3.08 10^6/uL (4.30-6.10); WHITE BLOOD COUNT 2.4 10^3/uL (4.0-10.0)
[2024-02-15 10:00] LABS: ALBUMIN 2.7 G/DL (3.2-5.2); ALKALINE PHOSPHATASE 123 U/L (46-116); ALT/SGPT 70 U/L (7.0-40); AST/SGOT 32 U/L (<34); BILIRUBIN,TOTAL 0.6 MG/DL (0.3-1.2); BLOOD UREA NITROGEN 12 MG/DL (9-23); CALCIUM LEVEL 8.5 MG/DL (8.3-10.6); CARBON DIOXIDE LEVEL 27 MMOL/L (20-31); CHLORIDE LEVEL 106 MMOL/L (98-107); CREATININE FOR GFR 0.58 MG/DL (0.70-1.30); GLOMERULAR FILTRATION RATE > 60.0 (>42); GLUCOSE, FASTING 156 MG/DL (74-106); POTASSIUM SERUM 4.4 MMOL/L (3.5-5.1); SODIUM LEVEL 138 MMOL/L (136-145); TOTAL PROTEIN 5.4 G/DL (5.7-8.2)
[2024-02-29 09:18] LABS: BASO # 0.1 10^3/uL (0.0-0.2); BASO % 0.8 % (0.0-1.0); EOS # 0.2 10^3/uL (0.0-0.5); EOS % 2.3 % (0.0-3.0); HEMATOCRIT 30.6 % (42.0-52.0); HEMOGLOBIN 9.3 g/dl (13.5-17.5); LYMPH # 1.3 10^3/uL (1.5-5.0); LYMPH % 16.4 % (24.0-44.0); MEAN CORPUSCULAR HEMOGLOBIN 26.3 pg (27.0-33.0); MEAN CORPUSCULAR HGB CONC 30.4 g/dl (32.0-36.5); MEAN CORPUSCULAR VOLUME 86.4 fl (80.0-96.0); MONO # 0.7 10^3/uL (0.0-0.8); MONO % 9.2 % (2.0-8.0); NEUTROPHILS # 5.4 10^3/uL (1.5-8.5); NEUTROPHILS % 70.6 % (36.0-66.0); PLATELET COUNT, AUTOMATED 325 10^3/uL (150-450); RED BLOOD COUNT 3.54 10^6/uL (4.30-6.10); WHITE BLOOD COUNT 7.7 10^3/uL (4.0-10.0)
[2024-02-29 10:04] LABS: ALBUMIN 2.4 G/DL (3.2-5.2); ALKALINE PHOSPHATASE 150 U/L (46-116); ALT/SGPT 22 U/L (7.0-40); AST/SGOT 27 U/L (<34); BILIRUBIN,TOTAL 0.4 MG/DL (0.3-1.2); BLOOD UREA NITROGEN 13 MG/DL (9-23); CALCIUM LEVEL 8.2 MG/DL (8.3-10.6); CARBON DIOXIDE LEVEL 27 MMOL/L (20-31); CHLORIDE LEVEL 109 MMOL/L (98-107); CREATININE FOR GFR 0.61 MG/DL (0.70-1.30); GLOMERULAR FILTRATION RATE > 60.0 (>42); GLUCOSE, FASTING 149 MG/DL (74-106); POTASSIUM SERUM 4.3 MMOL/L (3.5-5.1); SODIUM LEVEL 142 MMOL/L (136-145); TOTAL PROTEIN 5.5 G/DL (5.7-8.2)
[2024-03-01 09:40] VITALS: BP 135/79; O2SAT 100
[2024-03-01] MEDS: PROCHLORPERAZINE 5MG TAB PO SCH (10:42)
[2024-03-01] MEDS: dexAMETHasone 4 MG TAB PO SCH (10:43)
[2024-03-01] MEDS: PACLITAXEL PROTEIN BOUND IV SCH (11:35)
[2024-03-01] MEDS: NS IV SCH (12:32)
[2024-03-01] MEDS: GEMCITABINE IV SCH (12:32)
[2024-03-01 13:55] LABS: INR 1.35; PARTIAL THROMBOPLASTIN TIME 35.2 SECONDS (24.8-34.2); PROTHROMBIN TIME 16.3 SECONDS (12.5-14.5)
[2024-03-07 08:52] LABS: BASO # 0.1 10^3/uL (0.0-0.2); BASO % 1.8 % (0.0-1.0); EOS # 0.3 10^3/uL (0.0-0.5); EOS % 6.5 % (0.0-3.0); HEMATOCRIT 30.6 % (42.0-52.0); HEMOGLOBIN 9.3 g/dl (13.5-17.5); LYMPH % 20.2 % (24.0-44.0); MEAN CORPUSCULAR HEMOGLOBIN 26.3 pg (27.0-33.0); MEAN CORPUSCULAR HGB CONC 30.4 g/dl (32.0-36.5); MEAN CORPUSCULAR VOLUME 86.4 fl (80.0-96.0); MONO # 0.2 10^3/uL (0.0-0.8); MONO % 4.5 % (2.0-8.0); NEUTROPHILS # 3.4 10^3/uL (1.5-8.5); NEUTROPHILS % 66.4 % (36.0-66.0); PLATELET COUNT, AUTOMATED 214 10^3/uL (150-450); RED BLOOD COUNT 3.54 10^6/uL (4.30-6.10); WHITE BLOOD COUNT 5.1 10^3/uL (4.0-10.0)
[2024-03-07 09:46] LABS: ALBUMIN 2.7 G/DL (3.2-5.2); ALKALINE PHOSPHATASE 145 U/L (46-116); ALT/SGPT 54 U/L (7.0-40); AST/SGOT 40 U/L (<34); BILIRUBIN,TOTAL 0.6 MG/DL (0.3-1.2); BLOOD UREA NITROGEN 16 MG/DL (9-23); CA19-9 TUMOR MARKER,CARBOHYDRA < 1.2 U/ML (<35.0); CALCIUM LEVEL 8.5 MG/DL (8.3-10.6); CARBON DIOXIDE LEVEL 26 MMOL/L (20-31); CHLORIDE LEVEL 108 MMOL/L (98-107); CREATININE FOR GFR 0.63 MG/DL (0.70-1.30); GLOMERULAR FILTRATION RATE > 60.0 (>42); GLUCOSE, FASTING 146 MG/DL (74-106); POTASSIUM SERUM 4.4 MMOL/L (3.5-5.1); SODIUM LEVEL 140 MMOL/L (136-145); TOTAL PROTEIN 6.4 G/DL (5.7-8.2)
[2024-03-08 09:30] VITALS: BP 111/59; O2SAT 100
[2024-03-08] MEDS: PROCHLORPERAZINE 5MG TAB PO SCH (10:32)
[2024-03-08] MEDS: dexAMETHasone 4 MG TAB PO SCH (10:32)
[2024-03-08] MEDS: PACLITAXEL PROTEIN BOUND IV SCH (11:31)
[2024-03-08] MEDS: NS IV SCH (12:09)
[2024-03-08] MEDS: GEMCITABINE IV SCH (12:09)
[2024-03-14 09:11] LABS: EOS # 0.1 10^3/uL (0.0-0.5); EOS % 8.9 % (0.0-3.0); HEMATOCRIT 27.8 % (42.0-52.0); HEMOGLOBIN 8.5 g/dl (13.5-17.5); LYMPH # 0.5 10^3/uL (1.5-5.0); LYMPH % 45.5 % (24.0-44.0); MEAN CORPUSCULAR HEMOGLOBIN 25.9 pg (27.0-33.0); MEAN CORPUSCULAR HGB CONC 30.6 g/dl (32.0-36.5); MEAN CORPUSCULAR VOLUME 84.8 fl (80.0-96.0); MONO # 0.1 10^3/uL (0.0-0.8); MONO % 5.9 % (2.0-8.0); NEUTROPHILS % 30.8 % (36.0-66.0); PLATELET COUNT, AUTOMATED 106 10^3/uL (150-450); RED BLOOD COUNT 3.28 10^6/uL (4.30-6.10)
[2024-03-14 09:13] LABS: NEUTROPHILS # 0.3 10^3/uL (1.5-8.5)
[2024-03-14 09:50] LABS: ALBUMIN 2.6 G/DL (3.2-5.2); ALKALINE PHOSPHATASE 124 U/L (46-116); ALT/SGPT 35 U/L (7.0-40); AST/SGOT 28 U/L (<34); BILIRUBIN,TOTAL 0.6 MG/DL (0.3-1.2); BLOOD UREA NITROGEN 12 MG/DL (9-23); CALCIUM LEVEL 8.2 MG/DL (8.3-10.6); CARBON DIOXIDE LEVEL 26 MMOL/L (20-31); CHLORIDE LEVEL 111 MMOL/L (98-107); CREATININE FOR GFR 0.59 MG/DL (0.70-1.30); GLOMERULAR FILTRATION RATE > 60.0 (>42); GLUCOSE, FASTING 100 MG/DL (74-106); POTASSIUM SERUM 3.6 MMOL/L (3.5-5.1); SODIUM LEVEL 142 MMOL/L (136-145); TOTAL PROTEIN 5.9 G/DL (5.7-8.2)
[2024-03-14 10:39] LABS: CA19-9 TUMOR MARKER,CARBOHYDRA 4.2 U/ML (<35.0)
[2024-03-15 11:00] VITALS: BP 100/59; O2SAT 100
[2024-03-15] MEDS: FILGRASTIM SNDZ SC SCH (12:56)
[2024-03-15] MEDS: ONLY SC SCH (12:56)
[2024-03-18] MEDS: ONLY SC ONE (14:41)
[2024-03-18] MEDS: FILGRASTIM SNDZ SC ONE (14:41)
[2024-03-18] MEDS: FILGRASTIM SNDZ SC SCH (23:59)
[2024-03-18] MEDS: ONLY SC SCH (23:59)
[2024-03-19] MEDS: ONLY SC ONE (13:20)
[2024-03-19] MEDS: FILGRASTIM SNDZ SC ONE (13:20)
[2024-03-19] MEDS: FILGRASTIM SNDZ SC SCH (23:59)
[2024-03-19] MEDS: ONLY SC SCH (23:59)
[2024-03-22 07:56] VITALS: BP 110/62; O2SAT 100
[2024-03-22] MEDS: dexAMETHasone 4 MG TAB PO SCH (08:25)
[2024-03-22] MEDS: PROCHLORPERAZINE 5MG TAB PO SCH (08:25)
[2024-03-22] MEDS: PACLITAXEL PROTEIN BOUND IV SCH (09:30)
[2024-03-22] MEDS: GEMCITABINE IV SCH (10:14)
[2024-03-22] MEDS: NS IV SCH (10:14)
[2024-03-22] MEDS: SODIUM CHLORIDE 0.9% INJ 10 ML SYR IV PRN (10:48)
[2024-04-04] MEDS: SODIUM CHLORIDE 0.9% INJ 10 ML SYR IV PRN (08:46)
[2024-04-04 09:20] LABS: BASO # 0.1 10^3/uL (0.0-0.2); BASO % 1.2 % (0.0-1.0); EOS # 0.3 10^3/uL (0.0-0.5); EOS % 5.2 % (0.0-3.0); HEMATOCRIT 30.5 % (42.0-52.0); LYMPH # 1.1 10^3/uL (1.5-5.0); LYMPH % 21.7 % (24.0-44.0); MEAN CORPUSCULAR HEMOGLOBIN 25.6 pg (27.0-33.0); MEAN CORPUSCULAR HGB CONC 29.5 g/dl (32.0-36.5); MEAN CORPUSCULAR VOLUME 86.6 fl (80.0-96.0); MONO # 0.6 10^3/uL (0.0-0.8); NEUTROPHILS # 2.9 10^3/uL (1.5-8.5); NEUTROPHILS % 59.5 % (36.0-66.0); PLATELET COUNT, AUTOMATED 227 10^3/uL (150-450); RED BLOOD COUNT 3.52 10^6/uL (4.30-6.10); WHITE BLOOD COUNT 4.8 10^3/uL (4.0-10.0)
[2024-04-04 09:41] LABS: ALBUMIN 2.9 G/DL (3.2-5.2); ALKALINE PHOSPHATASE 122 U/L (46-116); ALT/SGPT 18 U/L (7.0-40); AST/SGOT 16 U/L (<34); BILIRUBIN,TOTAL 0.4 MG/DL (0.3-1.2); BLOOD UREA NITROGEN 9 MG/DL (9-23); CALCIUM LEVEL 8.7 MG/DL (8.3-10.6); CARBON DIOXIDE LEVEL 26 MMOL/L (20-31); CHLORIDE LEVEL 110 MMOL/L (98-107); CREATININE FOR GFR 0.56 MG/DL (0.70-1.30); GLOMERULAR FILTRATION RATE > 60.0 (>42); GLUCOSE, FASTING 200 MG/DL (74-106); POTASSIUM SERUM 3.9 MMOL/L (3.5-5.1); SODIUM LEVEL 141 MMOL/L (136-145); TOTAL PROTEIN 6.3 G/DL (5.7-8.2)
[2024-04-05 13:08] VITALS: BP 129/66; O2SAT 99
[2024-04-05] MEDS: [UNRECOGNIZED DRUG - OTHER] SC ONE ×2 (13:54→13:55)
[2024-04-05] MEDS: FILGRASTIM SNDZ SC ONE (13:55)
[2024-04-05] MEDS: ONLY SC ONE (13:55)
[2024-04-05] MEDS: PROCHLORPERAZINE 5MG TAB PO SCH (13:56)
[2024-04-05] MEDS: dexAMETHasone 4 MG TAB PO SCH (13:57)
[2024-04-05] MEDS: PACLITAXEL PROTEIN BOUND IV SCH (15:03)
[2024-04-05] MEDS: NS IV SCH (15:41)
[2024-04-05] MEDS: GEMCITABINE IV SCH (15:41)
[2024-04-08] MEDS: FILGRASTIM SNDZ SC ONE (14:27)
[2024-04-08] MEDS: ONLY SC ONE (14:27)
[2024-04-09] MEDS: ONLY SC ONE (14:20)
[2024-04-09] MEDS: FILGRASTIM SNDZ SC ONE (14:20)
[2024-04-11] MEDS: SODIUM CHLORIDE 0.9% INJ 10 ML SYR IV PRN (09:10)
[2024-04-11 09:17] LABS: BASO # 0.1 10^3/uL (0.0-0.2); BASO % 0.5 % (0.0-1.0); EOS # 0.3 10^3/uL (0.0-0.5); EOS % 2.6 % (0.0-3.0); HEMOGLOBIN 8.5 g/dl (13.5-17.5); LYMPH # 1.2 10^3/uL (1.5-5.0); LYMPH % 9.2 % (24.0-44.0); MEAN CORPUSCULAR HEMOGLOBIN 25.8 pg (27.0-33.0); MEAN CORPUSCULAR HGB CONC 30.4 g/dl (32.0-36.5); MEAN CORPUSCULAR VOLUME 84.8 fl (80.0-96.0); MONO # 0.3 10^3/uL (0.0-0.8); MONO % 2.5 % (2.0-8.0); NEUTROPHILS # 10.9 10^3/uL (1.5-8.5); NEUTROPHILS % 84.6 % (36.0-66.0); PLATELET COUNT, AUTOMATED 225 10^3/uL (150-450); WHITE BLOOD COUNT 12.9 10^3/uL (4.0-10.0)
[2024-04-11 09:54] LABS: ALKALINE PHOSPHATASE 129 U/L (46-116); ALT/SGPT 46 U/L (7.0-40); AST/SGOT 20 U/L (<34); BILIRUBIN,TOTAL 0.4 MG/DL (0.3-1.2); BLOOD UREA NITROGEN 12 MG/DL (9-23); CALCIUM LEVEL 8.7 MG/DL (8.3-10.6); CARBON DIOXIDE LEVEL 27 MMOL/L (20-31); CHLORIDE LEVEL 108 MMOL/L (98-107); CREATININE FOR GFR 0.54 MG/DL (0.70-1.30); GLOMERULAR FILTRATION RATE > 60.0 (>42); GLUCOSE, FASTING 180 MG/DL (74-106); POTASSIUM SERUM 3.8 MMOL/L (3.5-5.1); SODIUM LEVEL 138 MMOL/L (136-145); TOTAL PROTEIN 6.2 G/DL (5.7-8.2)
[2024-04-12 10:54] VITALS: BP 124/67; O2SAT 99
[2024-04-12] MEDS: dexAMETHasone 4 MG TAB PO SCH (11:31)
[2024-04-12] MEDS: PROCHLORPERAZINE 5MG TAB PO SCH (11:31)
[2024-04-12] MEDS: PACLITAXEL PROTEIN BOUND IV SCH (12:42)
[2024-04-12] MEDS: GEMCITABINE IV SCH (13:38)
[2024-04-12] MEDS: NS IV SCH (13:38)
[2024-04-15] MEDS: ONLY SC ONE ×2 (11:13)
[2024-04-15] MEDS: FILGRASTIM SNDZ SC ONE ×2 (11:13)
[2024-04-16] MEDS: ONLY SC ONE (13:28)
[2024-04-16] MEDS: FILGRASTIM SNDZ SC ONE (13:28)
[2024-04-17] MEDS: ONLY SC ONE (13:13)
[2024-04-17] MEDS: FILGRASTIM SNDZ SC ONE (13:13)
[2024-04-18 09:11] LABS: BASO # 0.1 10^3/uL (0.0-0.2); BASO % 0.5 % (0.0-1.0); EOS # 0.3 10^3/uL (0.0-0.5); EOS % 1.1 % (0.0-3.0); HEMATOCRIT 27.3 % (42.0-52.0); HEMOGLOBIN 8.3 g/dl (13.5-17.5); LYMPH # 1.2 10^3/uL (1.5-5.0); LYMPH % 4.9 % (24.0-44.0); MEAN CORPUSCULAR HEMOGLOBIN 25.8 pg (27.0-33.0); MEAN CORPUSCULAR HGB CONC 30.4 g/dl (32.0-36.5); MEAN CORPUSCULAR VOLUME 84.8 fl (80.0-96.0); MONO # 0.4 10^3/uL (0.0-0.8); MONO % 1.8 % (2.0-8.0); NEUTROPHILS # 21.5 10^3/uL (1.5-8.5); NEUTROPHILS % 90.2 % (36.0-66.0); RED BLOOD COUNT 3.22 10^6/uL (4.30-6.10); WHITE BLOOD COUNT 23.8 10^3/uL (4.0-10.0)
[2024-04-18 09:41] LABS: ALKALINE PHOSPHATASE 165 U/L (46-116); ALT/SGPT 39 U/L (7.0-40); AST/SGOT 24 U/L (<34); BILIRUBIN,TOTAL 0.4 MG/DL (0.3-1.2); BLOOD UREA NITROGEN 13 MG/DL (9-23); CALCIUM LEVEL 8.7 MG/DL (8.3-10.6); CARBON DIOXIDE LEVEL 25 MMOL/L (20-31); CHLORIDE LEVEL 107 MMOL/L (98-107); CREATININE FOR GFR 0.56 MG/DL (0.70-1.30); GLOMERULAR FILTRATION RATE > 60.0 (>42); GLUCOSE, FASTING 153 MG/DL (74-106); POTASSIUM SERUM 3.6 MMOL/L (3.5-5.1); SODIUM LEVEL 137 MMOL/L (136-145); TOTAL PROTEIN 6.2 G/DL (5.7-8.2)
[2024-04-19 11:31] VITALS: BP 118/60; O2SAT 100
[2024-04-19] MEDS: dexAMETHasone 4 MG TAB PO SCH (12:44)
[2024-04-19] MEDS: PROCHLORPERAZINE 5MG TAB PO SCH (12:44)
[2024-04-19] MEDS: PACLITAXEL PROTEIN BOUND IV SCH (13:06)
[2024-04-19] MEDS: NS IV SCH (14:00)
[2024-04-19] MEDS: GEMCITABINE IV SCH (14:00)
[2024-04-19] MEDS: SODIUM CHLORIDE 0.9% INJ 10 ML SYR IV PRN (14:37)
[2024-05-15] MEDS: SODIUM CHLORIDE 0.9% INJ 10 ML SYR IV PRN (12:25)
[2024-05-15 12:46] LABS: BASO # 0.1 10^3/uL (0.0-0.2); BASO % 0.8 % (0.0-1.0); EOS # 0.8 10^3/uL (0.0-0.5); EOS % 4.9 % (0.0-3.0); HEMATOCRIT 36.3 % (42.0-52.0); HEMOGLOBIN 10.9 g/dl (13.5-17.5); LYMPH # 1.9 10^3/uL (1.5-5.0); LYMPH % 12.2 % (24.0-44.0); MEAN CORPUSCULAR HEMOGLOBIN 25.1 pg (27.0-33.0); MEAN CORPUSCULAR VOLUME 83.4 fl (80.0-96.0); MONO # 0.9 10^3/uL (0.0-0.8); MONO % 5.5 % (2.0-8.0); NEUTROPHILS # 11.9 10^3/uL (1.5-8.5); NEUTROPHILS % 76.1 % (36.0-66.0); PLATELET COUNT, AUTOMATED 321 10^3/uL (150-450); RED BLOOD COUNT 4.35 10^6/uL (4.30-6.10); WHITE BLOOD COUNT 15.7 10^3/uL (4.0-10.0)
[2024-05-15 13:25] LABS: ALBUMIN 3.3 G/DL (3.2-5.2); ALKALINE PHOSPHATASE 124 U/L (46-116); ALT/SGPT 11 U/L (7.0-40); AST/SGOT 13 U/L (<34); BILIRUBIN,TOTAL 0.5 MG/DL (0.3-1.2); BLOOD UREA NITROGEN 11 MG/DL (9-23); CALCIUM LEVEL 9.5 MG/DL (8.3-10.6); CARBON DIOXIDE LEVEL 28 MMOL/L (20-31); CHLORIDE LEVEL 108 MMOL/L (98-107); CREATININE FOR GFR 0.54 MG/DL (0.70-1.30); GLOMERULAR FILTRATION RATE > 60.0 (>42); GLUCOSE, FASTING 101 MG/DL (74-106); POTASSIUM SERUM 4.3 MMOL/L (3.5-5.1); SODIUM LEVEL 141 MMOL/L (136-145)
[~2024-05-16] VITALS: Ht 185.4 cm; Wt 89.5 kg
[~2024-05-16 11:11] MED LIST changes: +FILGRASTIM SNDZ SC SCH; +ONLY SC SCH; +PROCHLORPERAZINE 5MG TAB PO SCH; +SODIUM CHLORIDE 0.9% INJ 10 ML SYR IV PRN; +dexAMETHasone 4 MG TAB PO SCH
[2024-05-16 11:27] VITALS: BP 106/66; O2SAT 99
[2024-06-04] MEDS ORDERED: PSYLPOW4 PO (12:37)
[2024-06-04] MEDS ORDERED: ESSETAB4 PO (12:38)
[2024-06-18] MEDS ORDERED: BISA1TAB PO (10:21)
[2024-06-18] MEDS ORDERED: CREO3600 PO (10:21)
[2024-06-26] MEDS ORDERED: ONDA-282 PO (06:59)
[2024-06-26] MEDS ORDERED: ATIV1TAB10 PO (06:59)
[2024-06-26] MEDS ORDERED: BACL10TA2 PO (06:59)
[2024-06-26] MEDS ORDERED: ATRO2DRO4 SL (06:59)
[2024-06-26] MEDS ORDERED: MIRA33506 PO (06:59)
[2024-06-26] MEDS ORDERED: HYOS125TA PO (06:59)
[2024-06-26] MEDS ORDERED: MORP1SOL5 PO (06:59)
[2024-06-26] MEDS ORDERED: MORP30TASA PO (06:59)
== END 2024-06-30 | disposition expired ==
LOC: M ONCM 11:11
PROVIDERS: ATTEND Specialist
DX: Z51.11 Encounter for antineoplastic chemotherapy (principal); C25.2 Malignant neoplasm of tail of pancreas; I48.91 Unspecified atrial fibrillation; E11.9 Type 2 diabetes mellitus without complications; I10 Essential (primary) hypertension; R41.3 Other amnesia; H53.8 Other visual disturbances; I63.9 Cerebral infarction, unspecified; Z79.01 Long term (current) use of anticoagulants; Z79.4 Long term (current) use of insulin; Z79.899 Other long term (current) drug therapy; Z79.82 Long term (current) use of aspirin; G47.33 Obstructive sleep apnea (adult) (pediatric); Z99.89 Dependence on other enabling machines and devices
CPT/HCPCS: 36415; 36591; 70553; 80053; 82607; 82728; 83520; 83550; 83690; 83735; 85025; 85610; 85730; 86301; 96372; 96413; 96417; A9576; G0463; J1642; J9201; J9264; Q5101; Q5108

== ENCOUNTER → 2024-05-27 | Outpatient (CLI) | payer MEDICARE, OTHER ==
[~2024-05-27] MED LIST changes: -FILGRASTIM SNDZ SC SCH; +ISOVUE-370 76% 100ML VIAL As Ordered ONE; -ONLY SC SCH; -PROCHLORPERAZINE 5MG TAB PO SCH; -SODIUM CHLORIDE 0.9% INJ 10 ML SYR IV PRN; -dexAMETHasone 4 MG TAB PO SCH
== END ==
LOC: M RAD 16:53
PROVIDERS: ATTEND Internal Medicine
DX: R10.9 Unspecified abdominal pain (principal)
CPT/HCPCS: 74177; J1642; Q9967

== ENCOUNTER 2024-06-02 07:52 | Emergency (ER) | payer MEDICARE, OTHER ==
[~2024-06-02 07:52] MED LIST changes: -ISOVUE-370 76% 100ML VIAL As Ordered ONE
[2024-06-02] MEDS: NS 1,000 ML IV ONE (10:01)
[2024-06-02 10:13] LABS: VENOUS BASE EXCESS 2.3 (-2.0-2.0); VENOUS HCO3 27.1 MMOL/L (23.0-27.0); VENOUS O2 SATURATION 79.1 % (60.0-80.0); VENOUS PARTIAL PRESSURE CO2 43.1 mmHg (38.0-50.0); VENOUS PARTIAL PRESSURE O2 42.8 mmHg (30.0-50.0); VENOUS PH 7.417 UNITS (7.330-7.430); VENOUS STANDARD HCO3 26.1 MMOL/L; VENOUS TOTAL CO2 28.5 MMOL/L (24.0-28.0)
[2024-06-02 10:21] LABS: BASO # 0.1 10^3/uL (0.0-0.2); BASO % 0.8 % (0.0-1.0); EOS # 0.5 10^3/uL (0.0-0.5); EOS % 5.5 % (0.0-3.0); HEMATOCRIT 34.6 % (42.0-52.0); HEMOGLOBIN 10.6 g/dl (13.5-17.5); LYMPH # 1.5 10^3/uL (1.5-5.0); LYMPH % 15.7 % (24.0-44.0); MEAN CORPUSCULAR HEMOGLOBIN 24.7 pg (27.0-33.0); MEAN CORPUSCULAR HGB CONC 30.6 g/dl (32.0-36.5); MEAN CORPUSCULAR VOLUME 80.7 fl (80.0-96.0); MONO # 0.6 10^3/uL (0.0-0.8); MONO % 6.2 % (2.0-8.0); NEUTROPHILS # 6.6 10^3/uL (1.5-8.5); NEUTROPHILS % 71.5 % (36.0-66.0); PLATELET COUNT, AUTOMATED 226 10^3/uL (150-450); RED BLOOD COUNT 4.29 10^6/uL (4.30-6.10); WHITE BLOOD COUNT 9.2 10^3/uL (4.0-10.0)
[2024-06-02 10:52] LABS: OSMOLALITY SERUM 290 MOSM/KG (280-301)
[2024-06-02 11:04] LABS: ALBUMIN 2.8 G/DL (3.2-5.2); ALKALINE PHOSPHATASE 104 U/L (40-129); ALT/SGPT < 9 U/L (7.0-40); AST/SGOT 11 U/L (<34); BILIRUBIN,DIRECT 0.4 MG/DL (<0.4); BILIRUBIN,TOTAL 0.8 MG/DL (0.3-1.2); BLOOD UREA NITROGEN 17 MG/DL (9-23); CALCIUM LEVEL 9.4 MG/DL (8.3-10.6); CARBON DIOXIDE LEVEL 26 MMOL/L (20-31); CHLORIDE LEVEL 107 MMOL/L (98-107); CREATININE FOR GFR 0.49 MG/DL (0.70-1.30); GLOMERULAR FILTRATION RATE > 60.0 (>42); GLUCOSE, FASTING 101 MG/DL (74-106); POTASSIUM SERUM 3.9 MMOL/L (3.5-5.1); SODIUM LEVEL 140 MMOL/L (136-145); TOTAL PROTEIN 6.4 G/DL (5.7-8.2)
[2024-06-02 11:06] LABS: THYROID STIMULATING HORMONE 1.361 uIU/ML (0.55-4.78)
[2024-06-02] MEDS ORDERED: ISOVUE-370 76% 100ML VIAL As Ordered ONE (11:09)
[2024-06-02 11:21] LABS: LIPASE 44 U/L (12-53)
[2024-06-02] MEDS: SODIUM CHLORIDE 0.9% INJ 10 ML SYR IV PRN (13:15)
[2024-06-02 13:18] VITALS: BP 129/78; TEMP 98; O2SAT 99
== END 2024-06-02 13:40 | disposition home or self-care (01) ==
LOC: M ED 07:52
DX: C25.9 Malignant neoplasm of pancreas, unspecified (principal); I48.91 Unspecified atrial fibrillation; E11.9 Type 2 diabetes mellitus without complications; I10 Essential (primary) hypertension; Z79.01 Long term (current) use of anticoagulants; Z79.1 Long term (current) use of non-steroidal anti-inflammatories (NSAID); Z79.4 Long term (current) use of insulin; Z79.810 Long term (current) use of selective estrogen receptor modulators (SERMs); Z79.899 Other long term (current) drug therapy
CPT/HCPCS: 71045; 74177; 80048; 80076; 82140; 82803; 83690; 83735; 83930; 84443; 85025; 87040; 87486; 87581; 87633; 87798; 93005; 93041; 94760; 96361; 96374; 99284; J1642; Q9967

== ENCOUNTER 2024-06-04 08:03 | Emergency (ER) | payer MEDICARE, OTHER ==
[~2024-06-04] VITALS: Ht 185.4 cm; Wt 85.0 kg
[2024-06-04] MEDS: SODIUM CHLORIDE 0.9% INJ 10 ML SYR IV PRN (09:29)
[2024-06-04 09:44] LABS: BASO # 0.1 10^3/uL (0.0-0.2); BASO % 0.5 % (0.0-1.0); EOS # 0.5 10^3/uL (0.0-0.5); EOS % 5.2 % (0.0-3.0); HEMATOCRIT 34.1 % (42.0-52.0); HEMOGLOBIN 10.6 g/dl (13.5-17.5); LYMPH # 1.1 10^3/uL (1.5-5.0); LYMPH % 10.3 % (24.0-44.0); MEAN CORPUSCULAR HGB CONC 31.1 g/dl (32.0-36.5); MEAN CORPUSCULAR VOLUME 80.4 fl (80.0-96.0); MONO # 0.8 10^3/uL (0.0-0.8); MONO % 7.7 % (2.0-8.0); NEUTROPHILS # 7.8 10^3/uL (1.5-8.5); NEUTROPHILS % 76.1 % (36.0-66.0); PLATELET COUNT, AUTOMATED 219 10^3/uL (150-450); RED BLOOD COUNT 4.24 10^6/uL (4.30-6.10); WHITE BLOOD COUNT 10.3 10^3/uL (4.0-10.0)
[2024-06-04 10:03] LABS: LIPASE 37 U/L (12-53)
[2024-06-04 10:11] LABS: ALBUMIN 2.7 G/DL (3.2-5.2); ALKALINE PHOSPHATASE 102 U/L (40-129); ALT/SGPT < 9 U/L (7.0-40); AST/SGOT 10 U/L (<34); BILIRUBIN,DIRECT 0.3 MG/DL (<0.4); BILIRUBIN,TOTAL 0.7 MG/DL (0.3-1.2); BLOOD UREA NITROGEN 15 MG/DL (9-23); CALCIUM LEVEL 8.9 MG/DL (8.3-10.6); CARBON DIOXIDE LEVEL 26 MMOL/L (20-31); CHLORIDE LEVEL 106 MMOL/L (98-107); CREATININE FOR GFR 0.46 MG/DL (0.70-1.30); GLOMERULAR FILTRATION RATE > 60.0 (>42); GLUCOSE, FASTING 113 MG/DL (74-106); POTASSIUM SERUM 3.7 MMOL/L (3.5-5.1); SODIUM LEVEL 141 MMOL/L (136-145); TOTAL PROTEIN 5.9 G/DL (5.7-8.2)
[2024-06-04] MEDS: NS 1,000 ML IV ONE (11:30)
[2024-06-04] MEDS: ONDANSETRON 4MG ORAL DISINTEGRATING TAB PO ONE (11:30)
[2024-06-04] MEDS ORDERED: PSYLPOW4 PO (12:37)
[2024-06-04] MEDS ORDERED: ESSETAB4 PO (12:38)
[2024-06-04] MEDS ORDERED: HOME MED LIST COMPLETE! XX SCH (12:40)
[2024-06-04 13:05] VITALS: BP 153/74; TEMP 98.6; O2SAT 100
== END 2024-06-04 13:11 | disposition home or self-care (01) ==
LOC: M ED 08:03
DX: C25.9 Malignant neoplasm of pancreas, unspecified (principal); E86.0 Dehydration; I48.91 Unspecified atrial fibrillation; E11.9 Type 2 diabetes mellitus without complications; I10 Essential (primary) hypertension; Z79.01 Long term (current) use of anticoagulants; Z79.1 Long term (current) use of non-steroidal anti-inflammatories (NSAID); Z79.4 Long term (current) use of insulin; Z79.810 Long term (current) use of selective estrogen receptor modulators (SERMs); Z79.899 Other long term (current) drug therapy
CPT/HCPCS: 71045; 80048; 80076; 83690; 85025; 87486; 87581; 87633; 87798; 93005; 96361; 96374; 99285; J1642

== ENCOUNTER 2024-06-18 09:32 | Inpatient (IN) | payer MEDICARE, OTHER ==
[~2024-06-18] VITALS: Ht 185.4 cm; Wt 85.4 kg
[~2024-06-18 09:32] MED LIST changes: +ESSETAB4 PO; +PSYLPOW4 PO
[2024-06-18] MEDS ORDERED: BISA1TAB PO (10:21)
[2024-06-18] MEDS ORDERED: CREO3600 PO (10:21)
[2024-06-18 10:33] LABS: BASO # 0.1 10^3/uL (0.0-0.2); BASO % 0.6 % (0.0-1.0); EOS # 0.4 10^3/uL (0.0-0.5); EOS % 3.4 % (0.0-3.0); HEMATOCRIT 37.3 % (42.0-52.0); HEMOGLOBIN 11.7 g/dl (13.5-17.5); LYMPH # 1.6 10^3/uL (1.5-5.0); LYMPH % 15.3 % (24.0-44.0); MEAN CORPUSCULAR HEMOGLOBIN 24.3 pg (27.0-33.0); MEAN CORPUSCULAR HGB CONC 31.4 g/dl (32.0-36.5); MEAN CORPUSCULAR VOLUME 77.4 fl (80.0-96.0); MONO # 0.6 10^3/uL (0.0-0.8); MONO % 6.1 % (2.0-8.0); NEUTROPHILS # 7.7 10^3/uL (1.5-8.5); NEUTROPHILS % 74.2 % (36.0-66.0); PLATELET COUNT, AUTOMATED 384 10^3/uL (150-450); RED BLOOD COUNT 4.82 10^6/uL (4.30-6.10); WHITE BLOOD COUNT 10.4 10^3/uL (4.0-10.0)
[2024-06-18] MEDS: traMADol 50 MG TAB PO ONE (10:50)
[2024-06-18 10:53] LABS: CPK CREATINE PHOSPHOKINASE 26 U/L (46-171)
[2024-06-18 10:54] LABS: ALBUMIN 2.5 G/DL (3.2-5.2); ALKALINE PHOSPHATASE 117 U/L (40-129); ALT/SGPT 12 U/L (7.0-40); AST/SGOT 15 U/L (<34); BILIRUBIN,DIRECT 0.4 MG/DL (<0.4); BILIRUBIN,TOTAL 0.7 MG/DL (0.3-1.2); BLOOD UREA NITROGEN 14 MG/DL (9-23); CALCIUM LEVEL 9.3 MG/DL (8.3-10.6); CARBON DIOXIDE LEVEL 24 MMOL/L (20-31); CHLORIDE LEVEL 104 MMOL/L (98-107); CK-MB VALUE MASS < 1.0 NG/ML (<3.6); CREATININE FOR GFR 0.58 MG/DL (0.70-1.30); GLOMERULAR FILTRATION RATE > 60.0 (>42); GLUCOSE, FASTING 129 MG/DL (74-106); MB/CK RELATIVE INDEX 3.84 (< OR =4); POTASSIUM SERUM 3.7 MMOL/L (3.5-5.1); SODIUM LEVEL 138 MMOL/L (136-145); TOTAL PROTEIN 6.1 G/DL (5.7-8.2)
[2024-06-18 10:58] LABS: THYROID STIMULATING HORMONE 1.529 uIU/ML (0.55-4.78)
[2024-06-18] MEDS ORDERED: HOME MED LIST COMPLETE! XX SCH (11:55)
[2024-06-18] MEDS ORDERED: ISOVUE-370 76% 100ML VIAL As Ordered ONE (12:55)
[2024-06-18] MEDS: SODIUM CHLORIDE 0.9% INJ 10 ML SYR IV PRN (12:57)
[2024-06-18 13:32] LABS: MAGNESIUM LEVEL 1.9 MG/DL (1.8-2.4)
[2024-06-18] MEDS: fentaNYL 100 MCG/2 ML INJECTION IV PRN (16:07)
[2024-06-18] MEDS ORDERED: ACETAMINOPHEN 325 MG TAB PO PRN (16:55)
[2024-06-18] MEDS ORDERED: BISACODYL 5MG TAB PO PRN (16:55)
[2024-06-18] MEDS: DULoxetine 30MG CAPSULE (CYMBALTA) PO SCH (17:13)
[2024-06-18] MEDS: ATORVASTATIN 20 MG TAB PO SCH (17:14)
[2024-06-18] MEDS: DIGOXIN 0.25 MG TAB PO SCH (17:14)
[2024-06-18] MEDS: NS 1,000 ML IV ONE (17:15)
[2024-06-18 18:00] VITALS: BP 140/84; TEMP 98.4; O2SAT 98
[2024-06-18] MEDS: CREON-12 CAPSULE (PANCRELIPASE) PO SCH (18:00)
[2024-06-18] MEDS: CREON-24 CAPSULE (PANCRELIPASE) PO SCH (18:28)
[2024-06-18] MEDS: NS 1,000 ML IV SCH (18:28)
[2024-06-18 19:40] VITALS: BP 142/80; TEMP 97.5; O2SAT 91
[2024-06-18] MEDS: ASPIRIN 81MG ENTERIC TABLET PO SCH (19:44)
[2024-06-18] MEDS: PERCOCET 5MG/325MG TAB PO PRN (19:45)
[2024-06-18] MEDS: APIXABAN 5 MG TAB (ELIQUIS) PO SCH (19:47)
[2024-06-18] MEDS: TAMSULOSIN 0.4 MG CAP PO SCH (19:47)
[2024-06-18] MEDS: METOPROLOL TART 25 MG TABLET PO SCH (19:47)
[2024-06-18] MEDS: LEVEMIR (INSULIN DETEMIR) 1 UNITS/0.01ML SC SCH (21:37)
[2024-06-19 04:56] VITALS: BP 166/78; TEMP 97.5
[2024-06-19 06:45] LABS: HEMATOCRIT 36.2 % (42.0-52.0); HEMOGLOBIN 10.9 g/dl (13.5-17.5); MEAN CORPUSCULAR HEMOGLOBIN 24.3 pg (27.0-33.0); MEAN CORPUSCULAR HGB CONC 30.1 g/dl (32.0-36.5); MEAN CORPUSCULAR VOLUME 80.6 fl (80.0-96.0); PLATELET COUNT, AUTOMATED 320 10^3/uL (150-450); RED BLOOD COUNT 4.49 10^6/uL (4.30-6.10); WHITE BLOOD COUNT 10.9 10^3/uL (4.0-10.0)
[2024-06-19 07:10] LABS: BLOOD UREA NITROGEN 15 MG/DL (9-23); CALCIUM LEVEL 8.9 MG/DL (8.3-10.6); CARBON DIOXIDE LEVEL 29 MMOL/L (20-31); CHLORIDE LEVEL 104 MMOL/L (98-107); CREATININE FOR GFR 0.61 MG/DL (0.70-1.30); GLOMERULAR FILTRATION RATE > 60.0 (>42); GLUCOSE, FASTING 96 MG/DL (74-106); POTASSIUM SERUM 3.8 MMOL/L (3.5-5.1); SODIUM LEVEL 139 MMOL/L (136-145)
[2024-06-19 07:45] VITALS: BP 140/86; TEMP 97.5; O2SAT 100
[2024-06-19] MEDS: PANTOPRAZOLE 40MG TAB (PROTONIX) PO SCH (10:07)
[2024-06-19] MEDS: CREON-24 CAPSULE (PANCRELIPASE) PO SCH (12:29)
[2024-06-19] MEDS: oxyCODONE 10 MG CR TAB PO SCH (12:29)
[2024-06-19 13:27] VITALS: BP 136/68; TEMP 97.7; O2SAT 98
[2024-06-19 19:27] VITALS: BP 147/81; TEMP 97.6
[2024-06-20] MEDS: oxyCODONE 5MG TAB PO PRN (03:38)
[2024-06-20 03:46] VITALS: BP 137/70; TEMP 97.7; O2SAT 98
[2024-06-20] MEDS: ONDANSETRON 4MG ORAL DISINTEGRATING TAB PO PRN (04:55)
[2024-06-20 10:42] LABS: BASO # 0.1 10^3/uL (0.0-0.2); BASO % 0.7 % (0.0-1.0); EOS # 0.6 10^3/uL (0.0-0.5); EOS % 5.2 % (0.0-3.0); HEMATOCRIT 39.9 % (42.0-52.0); HEMOGLOBIN 12.2 g/dl (13.5-17.5); LYMPH # 1.2 10^3/uL (1.5-5.0); MEAN CORPUSCULAR HEMOGLOBIN 24.6 pg (27.0-33.0); MEAN CORPUSCULAR HGB CONC 30.6 g/dl (32.0-36.5); MEAN CORPUSCULAR VOLUME 80.6 fl (80.0-96.0); MONO # 0.8 10^3/uL (0.0-0.8); MONO % 6.4 % (2.0-8.0); NEUTROPHILS # 9.4 10^3/uL (1.5-8.5); NEUTROPHILS % 77.3 % (36.0-66.0); PLATELET COUNT, AUTOMATED 371 10^3/uL (150-450); RED BLOOD COUNT 4.95 10^6/uL (4.30-6.10); WHITE BLOOD COUNT 12.1 10^3/uL (4.0-10.0)
[2024-06-20 11:05] LABS: BLOOD UREA NITROGEN 14 MG/DL (9-23); CALCIUM LEVEL 8.9 MG/DL (8.3-10.6); CARBON DIOXIDE LEVEL 26 MMOL/L (20-31); CHLORIDE LEVEL 103 MMOL/L (98-107); CREATININE FOR GFR 0.53 MG/DL (0.70-1.30); GLOMERULAR FILTRATION RATE > 60.0 (>42); GLUCOSE, FASTING 138 MG/DL (74-106); POTASSIUM SERUM 3.8 MMOL/L (3.5-5.1); SODIUM LEVEL 136 MMOL/L (136-145)
[2024-06-20 11:22] LABS: CA19-9 TUMOR MARKER,CARBOHYDRA < 1.2 U/ML (<35.0)
[2024-06-20 11:36] LABS: PROCALCITONIN 0.19 ng/ml
[2024-06-20 12:00] VITALS: BP 132/71; TEMP 97.2; O2SAT 96
[2024-06-20] MEDS: NS 1,000 ML IV SCH (14:39)
[2024-06-20 19:46] VITALS: BP 112/55; TEMP 97.7
[2024-06-20 20:00] VITALS: BP 128/79; TEMP 97.7; O2SAT 98
[2024-06-21 03:59] VITALS: BP 166/80; TEMP 97.7; O2SAT 98
[2024-06-21 06:00] VITALS: BP 168/82; TEMP 98.1; O2SAT 98
[2024-06-21] MEDS ORDERED: VARIBAR NECTAR 40% w/v 240ML SUSP BTL As Ordered ONE (08:28)
[2024-06-21] MEDS ORDERED: VARIBAR PUDDING 40% w/v 230ML TUBE As Ordered ONE (08:28)
[2024-06-21] MEDS ORDERED: E-Z-PAQUE 96% w/w SUSP 176GM BTL As Ordered ONE (08:28)
[2024-06-21] MEDS ORDERED: BARIUM SULFATE 700 MG TABLET (E-Z-DISK) As Ordered ONE (08:28)
[2024-06-21] MEDS ORDERED: SENNA 8.6 MG TAB (SENOKOT) PO PRN (09:00)
[2024-06-21] MEDS: MIRALAX *UNIT DOSE* 17GM PACKET PO SCH (11:12)
[2024-06-21 12:43] VITALS: BP 150/76; TEMP 97.9; O2SAT 97
[2024-06-21] MEDS: oxyCODONE 5MG TAB PO ONE (17:05)
[2024-06-21 20:46] VITALS: BP 121/63; TEMP 97.9; O2SAT 95
[2024-06-21] MEDS: oxyCODONE 15MG CR TAB PO SCH (20:52)
[2024-06-21] MEDS: oxyCODONE 5MG TAB PO PRN (23:11)
[2024-06-22] MEDS: BACLOFEN 10 MG TAB PO PRN (10:49)
[2024-06-22 12:00] VITALS: BP 130/80; TEMP 98.2; O2SAT 98
[2024-06-22] MEDS: oxyCODONE 5MG TAB PO PRN (13:01)
[2024-06-22] MEDS: LIDOCAINE W/EPINEPHRINE 1% 20ML VIAL SC ONE (17:08)
[2024-06-22 19:47] VITALS: BP 135/70; TEMP 97.9; O2SAT 98
[2024-06-22] MEDS: oxyCODONE 20MG CR TAB PO SCH (20:53)
[2024-06-22] MEDS ORDERED: GLUCOSE 4 GM CHEW PO PRN (21:00)
[2024-06-22] MEDS ORDERED: DEXTROSE 50% 50ML SYRINGE IV PRN (21:00)
[2024-06-22] MEDS ORDERED: GLUCAGON INJ 1MG VIAL SC PRN (21:00)
[2024-06-22 21:42] LABS: BASO % 0.4 % (0.0-1.0); EOS # 0.4 10^3/uL (0.0-0.5); EOS % 3.3 % (0.0-3.0); HEMATOCRIT 38.2 % (42.0-52.0); HEMOGLOBIN 11.7 g/dl (13.5-17.5); LYMPH # 1.2 10^3/uL (1.5-5.0); LYMPH % 10.9 % (24.0-44.0); MEAN CORPUSCULAR HEMOGLOBIN 24.6 pg (27.0-33.0); MEAN CORPUSCULAR HGB CONC 30.6 g/dl (32.0-36.5); MEAN CORPUSCULAR VOLUME 80.3 fl (80.0-96.0); MONO # 1.2 10^3/uL (0.0-0.8); MONO % 11.2 % (2.0-8.0); NEUTROPHILS % 73.9 % (36.0-66.0); PLATELET COUNT, AUTOMATED 413 10^3/uL (150-450); RED BLOOD COUNT 4.76 10^6/uL (4.30-6.10); WHITE BLOOD COUNT 10.9 10^3/uL (4.0-10.0)
[2024-06-22 22:04] LABS: ALBUMIN 2.1 G/DL (3.2-5.2); ALKALINE PHOSPHATASE 118 U/L (40-129); ALT/SGPT 11 U/L (7.0-40); AST/SGOT 16 U/L (<34); BILIRUBIN,DIRECT 0.5 MG/DL (<0.4); BILIRUBIN,TOTAL 0.9 MG/DL (0.3-1.2); BLOOD UREA NITROGEN 17 MG/DL (9-23); CALCIUM LEVEL 8.7 MG/DL (8.3-10.6); CARBON DIOXIDE LEVEL 28 MMOL/L (20-31); CHLORIDE LEVEL 104 MMOL/L (98-107); CREATININE FOR GFR 0.58 MG/DL (0.70-1.30); GLOMERULAR FILTRATION RATE > 60.0 (>42); GLUCOSE, FASTING 98 MG/DL (74-106); MAGNESIUM LEVEL 1.9 MG/DL (1.8-2.4); POTASSIUM SERUM 4.4 MMOL/L (3.5-5.1); SODIUM LEVEL 137 MMOL/L (136-145); TOTAL PROTEIN 5.2 G/DL (5.7-8.2)
[2024-06-23 03:51] VITALS: BP 138/73; TEMP 96.6; O2SAT 98
[2024-06-23 12:00] VITALS: BP 104/62; TEMP 97.3; O2SAT 99
[2024-06-23 20:00] VITALS: BP 136/68; TEMP 98.1; O2SAT 92
[2024-06-24 04:00] VITALS: BP 120/59; TEMP 97.7; O2SAT 93
[2024-06-24 12:00] VITALS: BP 136/68; TEMP 97.6; O2SAT 96
[2024-06-24] MEDS: oxyCODONE 5MG TAB PO PRN (12:48)
[2024-06-24] MEDS: oxyCODONE 5MG TAB PO ONE (14:28)
[2024-06-24 20:30] VITALS: BP 126/62; TEMP 97.3; O2SAT 97
[2024-06-24 20:33] VITALS: BP 126/62
[2024-06-25 04:02] VITALS: BP 120/64; TEMP 97.2; O2SAT 98
[2024-06-25] MEDS ORDERED: LORazepam 1 MG TAB PO PRN (10:10)
[2024-06-25] MEDS ORDERED: ATROPINE SULFATE 1% OPHTH SOLN 2ML BTL SL PRN (10:10)
[2024-06-25] MEDS ORDERED: HYOSCYAMINE SULFATE 0.125 MG SUBL TABLET PO PRN (10:10)
[2024-06-25] MEDS ORDERED: ONDANSETRON 4MG ORAL DISINTEGRATING TAB PO PRN (10:15)
[2024-06-25] MEDS ORDERED: oxyCODONE 5MG TAB PO PRN (10:15)
[2024-06-25] MEDS: OLANZapine ORAL DISINTEGRATING TAB 5MG PO ONE (12:06)
[2024-06-25] MEDS: MORPHINE 10MG/0.5ML ORAL CONCENTRATE SOLUTION U/D SL PRN (12:06)
[2024-06-25] MEDS ORDERED: MORPHINE 10MG/0.5ML ORAL CONCENTRATE SOLUTION U/D SL SCH (17:00)
[2024-06-25 17:05] VITALS: BP 142/60; TEMP 97.3; O2SAT 97
[2024-06-25] MEDS: NS 1,000 ML IV SCH (17:10)
[2024-06-25] MEDS ORDERED: fentaNYL 100 MCG/2 ML INJECTION As Ordered ONE (17:11)
[2024-06-25] MEDS ORDERED: ceFAZolin 2 GM/D5W 50 ML IV BAG As Ordered ONE (17:11)
[2024-06-25] MEDS ORDERED: ISOVUE-300 61% 100ML VIAL As Ordered ONE (17:12)
[2024-06-25] MEDS ORDERED: MIDAZOLAM INJ 2MG/2ML VIAL As Ordered ONE (17:12)
[2024-06-25] MEDS ORDERED: LIDOCAINE 1% MDV 20ML VIAL As Ordered ONE (17:12)
[2024-06-25] MEDS: ceFAZolin SOD 2 GM in IV 1 EA IV ONE (17:20)
[2024-06-25] MEDS: ONDANSETRON 4MG ORAL DISINTEGRATING TAB PO SCH (21:26)
[2024-06-25] MEDS: MORPHINE SULFATE TAB EXT REL 30 MG PO SCH (21:27)
[2024-06-26] MEDS ORDERED: MORP30TASA PO (06:59)
[2024-06-26] MEDS ORDERED: HYOS125TA PO (06:59)
[2024-06-26] MEDS ORDERED: MIRA33506 PO (06:59)
[2024-06-26] MEDS ORDERED: ATIV1TAB10 PO (06:59)
[2024-06-26] MEDS ORDERED: MORP1SOL5 PO (06:59)
[2024-06-26] MEDS ORDERED: ONDA-282 PO (06:59)
[2024-06-26] MEDS ORDERED: ATRO2DRO4 SL (06:59)
[2024-06-26] MEDS ORDERED: BACL10TA2 PO (06:59)
== END 2024-06-26 09:35 | disposition hospice, inpatient (51) | DRG 947 ==
LOC: EDBD 09:32 → M ED 09:32 → M ED INP 09:33 → OBSVTOIN 14:19 → M MS5PR 17:45
PROVIDERS: ADMIT Internal Medicine; ATTEND Student in an Organized Health Care Education/Training Program
PROC: 0W9G3ZZ Drainage of Peritoneal Cavity, Percutaneous Approach (ICD-10-PCS; principal; 2024-06-22)
PROC: 0W9G30Z Drainage of Peritoneal Cavity with Drainage Device, Percutaneous Approach (ICD-10-PCS; 2024-06-25)
DX: G89.3 Neoplasm related pain (acute) (chronic) (principal); E43 Unspecified severe protein-calorie malnutrition; E87.20 Acidosis, unspecified; C25.9 Malignant neoplasm of pancreas, unspecified; I69.398 Other sequelae of cerebral infarction; H53.40 Unspecified visual field defects; I48.91 Unspecified atrial fibrillation; N40.0 Benign prostatic hyperplasia without lower urinary tract symptoms; D63.0 Anemia in neoplastic disease; E86.0 Dehydration; K86.89 Other specified diseases of pancreas; Z51.5 Encounter for palliative care; Z66 Do not resuscitate; R13.12 Dysphagia, oropharyngeal phase; R18.0 Malignant ascites; R53.1 Weakness; K59.00 Constipation, unspecified; R06.6 Hiccough; R62.7 Adult failure to thrive; R55 Syncope and collapse; R53.83 Other fatigue; Z92.21 Personal history of antineoplastic chemotherapy; Z79.01 Long term (current) use of anticoagulants; Z79.82 Long term (current) use of aspirin; Z79.4 Long term (current) use of insulin; Z79.899 Other long term (current) drug therapy